=== PATIENT | male | born 1960 | race Two or more races ===

== ENCOUNTER 2018-10-08 04:38 | Inpatient (IN) | payer OTHER ==
[~2018-10-08] VITALS: Ht 188 cm; Wt 83.9 kg
--- NOTE | 2018-10-08 04:45 | NUR ---
BIBRA. C/O "FEELING WEAK AND DIZZY X2 HRS." -NEURO DEFICITS. AOX4. AMBULATORY W,ASSISTANCE.
[2018-10-08] MEDS ORDERED: ONDANSETRON HCL/PF 4 MG/2 ML VIAL IVP ONE (05:00)
[2018-10-08] MEDS ORDERED: IV NS 0.9% 500 ML BAG IV ONE ×2 (05:00→18:00)
[2018-10-08] MEDS ORDERED: MECLIZINE HCL 12.5 MG TABLET PO ONE (05:00)
[2018-10-08] MEDS ORDERED: ONDANSETRON HCL/PF 4 MG/2 ML VIAL ONE (05:01)
[2018-10-08] MEDS ORDERED: MECLIZINE HCL 25 MG TABLET ONE (05:01)
[2018-10-08 05:09] LABS: BASOPHILS # (AUTO) 0.1 /CMM (0.0-0.2); BASOPHILS % (AUTO) 1.1 % (0.0-2.0); HEMATOCRIT 43 % (39-51); HEMOGLOBIN 14.4 g/dL (13.5-17.5); LYMPHOCYTES # (AUTO) 1.7 /CMM (0.8-4.8); LYMPHOCYTES % (AUTO) 22.1 % (20.0-44.0); MEAN CORPUSCULAR HGB CONC 34 g/dl (31.0-36.0); MEAN CORPUSCULAR VOLUME 104 fL (80-96); MONOCYTES # (AUTO) 0.8 /CMM (0.1-1.30); MONOCYTES % (AUTO) 10.8 % (2.0-12.0); NEUTROPHILS # (AUTO) 4.8 /CMM (1.8-8.9); PLATELET COUNT (AUTO) 184 /CMM (150-450); RED BLOOD CELL COUNT(AUTO) 4.14 MIL/uL (4.5-6.0); WHITE BLOOD COUNT (AUTO) 7.6 K/uL (4.3-11.0)
[2018-10-08 05:26] LABS: ALBUMIN 3.6 g/dL (3.4-5.0); BILIRUBIN,DIRECT 0.8 mg/dL (0.0-0.2); BILIRUBIN,TOTAL 1.2 mg/dL (0.2-1.0); CALCIUM, SERUM 9.5 mg/dL (8.5-10.1); CREATININE 1.4 mg/dL (0.6-1.3); POTASSIUM 4.1 mmol/L (3.5-5.1); TOTAL PROTEIN, SERUM 7.8 g/dL (6.4-8.2)
--- NOTE | 2018-10-08 06:07 | NUR ---
PT ASSIGNED TO 120-2 T
[2018-10-08] MEDS ORDERED: FUROSEMIDE 20 MG/2 ML VIAL ONE (06:38)
[2018-10-08] MEDS ORDERED: FUROSEMIDE 20 MG/2 ML VIAL IV SCH (07:00)
--- NOTE | 2018-10-08 07:20 | NUR ---
REPORT RECEIVED FROM HUGO JOAQUIN FOR CHERYL
--- NOTE | 2018-10-08 07:25 | NUR ---
URINE SAMPLE SENT TO LAB
[2018-10-08] MEDS ORDERED: OMEP20CA10 PO (07:44)
[2018-10-08] MEDS ORDERED: METO-356 PO (07:44)
[2018-10-08] MEDS ORDERED: BUME1TAB4 PO (07:44)
[2018-10-08] MEDS ORDERED: POTA20TA83 PO (07:44)
[2018-10-08] MEDS ORDERED: ALLO300T2 PO (07:44)
[2018-10-08] MEDS ORDERED: ATOR40TA PO (07:44)
[2018-10-08] MEDS ORDERED: DIGO125T PO (07:44)
[2018-10-08] MEDS ORDERED: ALBU18HF2 INH (07:44)
[2018-10-08] MEDS ORDERED: RIVA10TA PO (07:44)
--- NOTE | 2018-10-08 07:50 | NUR ---
REPORT GIVEN TO MS SUKHDEV JOAQUIN OF TELE UNIT
[2018-10-08 08:00] VITALS: BP 113/62
[2018-10-08] MEDS ORDERED: ACETAMINOPHEN 325 MG TABLET PO PRN (08:00)
[2018-10-08] MEDS ORDERED: MECLIZINE HCL 12.5 MG TABLET PO PRN (08:00)
[2018-10-08] MEDS ORDERED: MAGNESIUM HYDROXIDE 30 ML UDC PO PRN (08:00)
[2018-10-08] MEDS ORDERED: MAG HYDROX/AL HYDROX/SIMETH 30 ML UDC PO PRN (08:00)
[2018-10-08] MEDS ORDERED: MORPHINE SULFATE INJ 2 MG/ML DISP.SYRIN IV PRN (08:00)
[2018-10-08] MEDS ORDERED: TEMAZEPAM 15 MG CAPSULE PO PRN (08:00)
[2018-10-08] MEDS ORDERED: ONDANSETRON HCL/PF 4 MG/2 ML VIAL IVP PRN (08:00)
--- NOTE | 2018-10-08 08:15 | NUR ---
CONVEYOR LOADERPROCESS DEVELOPER NOTES RECEIVED PT FROM ER TO ROOM 120-2 VIA GURNEY.CAN AMBULATE TO THE ROOM.ON TEL HR IS A FIB 97,CONTROLLED.ON ROOM AIR,TOLERATING WELL.NO SOB AND ACUTE DISTRESS NOTED FOR NOW.SKIN ASSESSMENT HAS DONE AND VITAL SIGNS CHECKED AND RECORDED.IV LINE IS ON LEFT AC G16,SITE IS CLEAN,DRY AND INTACT AND NO BLEEDING NOTED..BED IS IN LOW POSITION AND LOCKED.CALL LIGHT IS WITHIN REACH.WILL CONTINUE TO MONITOR THE PT CLOSELY.
[2018-10-08 08:30] VITALS: BP 113/82
[2018-10-08] MEDS: POTASSIUM CHLORIDE 20 MEQ TAB.PRT.SR PO SCH (08:58)
[2018-10-08] MEDS: ATORVASTATIN 40 MG TABLET PO SCH (08:58)
[2018-10-08] MEDS: PANTOPRAZOLE 40 MG TABLET.DR PO SCH (08:58)
[2018-10-08] MEDS: ALLOPURINOL 100 MG TABLET PO SCH (08:59)
[2018-10-08] MEDS: BUMETANIDE (1 MG) 1 MG TABLET PO SCH ×2 (08:59→17:04)
[2018-10-08] MEDS: METOPROLOL SUCCINATE 25 MG TAB.SR.24H PO SCH (08:59)
--- NOTE | 2018-10-08 12:18 | NUR ---
SW received a call from Pt's Public Information Coordinator Mau Cortes from [facility] requesting for SW's email address so he can send pt's medication list. SW gave him the email address. SAMMY did receive the medication list and informed pt's EMANI Reed who requested for SW to place list in pt's chart. SW placed the list in pt's chart as requested. SW also receive an email from Mau providing pt's new pharmacy information, which is [facility] located at [address] [place] [address]; . SAMMY called pt's RN Gretchen and gave her the aforementioned information on the Pharmacy.
[2018-10-08] MEDS: DIGOXIN 0.125 MG TABLET PO SCH (12:33)
[2018-10-08 16:00] VITALS: BP 105/72
[2018-10-08] MEDS: RIVAROXABAN 10 MG TABLET PO SCH (17:05)
--- NOTE | 2018-10-08 17:56 | NUR ---
MS RN NOTES PT STATED THAT LYNDSAY FEELING TIRED,CHECKED THE BP-109/78 AND HR -45.DIVORCE ATTORNEY JESSA CARRANZA ORDERED IV NS 500ML BOLUS ONCE NOW.NEW ORDERS NOTED AND CARRIED OUT.
--- NOTE | 2018-10-08 18:59 | NUR ---
MS RN CLOSING NOTES PT IS LYING ON BED WITH IV NS 0.9%NS BOLUS.RESPIRATION IS EVEN AND NONLABORED.ENORSED TO PYROTECHNICS PRESS TENDER RN FOR CHERYL.
[2018-10-08 20:00] VITALS: BP_SYST 101; BP_SYST 102; BP_DIAS 73; BP_DIAS 77
[2018-10-08] MEDS: HYDROCODONE/APAP 5/325MG 1 EACH TABLET PO PRN (23:09)
[2018-10-09 04:00] VITALS: BP 110/65
[2018-10-09 06:41] LABS: BASOPHILS # (AUTO) 0.1 /CMM (0.0-0.2); BASOPHILS % (AUTO) 1.5 % (0.0-2.0); EOSINOPHILS % (AUTO) 3.3 % (0.0-6.0); HEMATOCRIT 42 % (39-51); HEMOGLOBIN 13.9 g/dL (13.5-17.5); LYMPHOCYTES # (AUTO) 1.3 /CMM (0.8-4.8); LYMPHOCYTES % (AUTO) 22.2 % (20.0-44.0); MEAN CORPUSCULAR HGB CONC 33 g/dl (31.0-36.0); MEAN CORPUSCULAR VOLUME 104 fL (80-96); MONOCYTES # (AUTO) 0.7 /CMM (0.1-1.30); MONOCYTES % (AUTO) 11.8 % (2.0-12.0); NEUTROPHILS # (AUTO) 3.6 /CMM (1.8-8.9); NEUTROPHILS % (AUTO) 61.2 % (43.0-81.0); PLATELET COUNT (AUTO) 178 /CMM (150-450); RED BLOOD CELL COUNT(AUTO) 4.03 MIL/uL (4.5-6.0); WHITE BLOOD COUNT (AUTO) 5.9 K/uL (4.3-11.0)
[2018-10-09 06:50] LABS: ALBUMIN 3.1 g/dL (3.4-5.0); BILIRUBIN,TOTAL 1.4 mg/dL (0.2-1.0); CALCIUM, SERUM 8.7 mg/dL (8.5-10.1); CREATININE 1.3 mg/dL (0.6-1.3); MAGNESIUM 2.4 mg/dL (1.8-2.4); PHOSPHORUS 4.3 mg/dL (2.5-4.9); POTASSIUM 3.9 mmol/L (3.5-5.1); TOTAL PROTEIN, SERUM 6.6 g/dL (6.4-8.2)
[2018-10-09 08:00] VITALS: BP 133/76
[2018-10-09 08:05] LABS: THYROID STIMULATING HORMONE 1.674 uIU/mL (0.358-3.74)
[2018-10-09] MEDS: METOPROLOL SUCCINATE 25 MG TAB.SR.24H PO SCH (09:00)
[2018-10-09] MEDS: POTASSIUM CHLORIDE 20 MEQ TAB.PRT.SR PO SCH (09:00)
[2018-10-09] MEDS: ALLOPURINOL 100 MG TABLET PO SCH (09:01)
[2018-10-09] MEDS: BUMETANIDE (1 MG) 1 MG TABLET PO SCH ×2 (09:01→17:36)
[2018-10-09] MEDS: ATORVASTATIN 40 MG TABLET PO SCH (09:01)
[2018-10-09] MEDS: PANTOPRAZOLE 40 MG TABLET.DR PO SCH (09:01)
[2018-10-09] MEDS: CARVEDILOL 6.25 MG TABLET PO SCH ×2 (10:22→20:55)
[2018-10-09] MEDS: LISINOPRIL (10MG) 10 MG TABLET PO SCH (10:22)
[2018-10-09] MEDS: DIGOXIN 0.125 MG TABLET PO SCH (14:08)
[2018-10-09 16:00] VITALS: BP 128/80
[2018-10-09] MEDS: RIVAROXABAN 10 MG TABLET PO SCH (17:36)
[2018-10-09 20:00] VITALS: BP 94/60
[2018-10-10 04:00] VITALS: BP 85/65
[2018-10-10] MEDS: HYDROCODONE/APAP 5/325MG 1 EACH TABLET PO PRN (04:00)
[2018-10-10 05:00] VITALS: BP 94/66
[2018-10-10 07:38] LABS: BASOPHILS # (AUTO) 0.1 /CMM (0.0-0.2); BASOPHILS % (AUTO) 1.2 % (0.0-2.0); EOSINOPHILS % (AUTO) 2.6 % (0.0-6.0); HEMATOCRIT 41 % (39-51); HEMOGLOBIN 13.6 g/dL (13.5-17.5); LYMPHOCYTES % (AUTO) 16.1 % (20.0-44.0); MEAN CORPUSCULAR HGB CONC 34 g/dl (31.0-36.0); MEAN CORPUSCULAR VOLUME 104 fL (80-96); MONOCYTES # (AUTO) 0.7 /CMM (0.1-1.30); MONOCYTES % (AUTO) 11.4 % (2.0-12.0); NEUTROPHILS # (AUTO) 4.4 /CMM (1.8-8.9); NEUTROPHILS % (AUTO) 68.7 % (43.0-81.0); PLATELET COUNT (AUTO) 185 /CMM (150-450); WHITE BLOOD COUNT (AUTO) 6.5 K/uL (4.3-11.0)
[2018-10-10 07:43] LABS: CALCIUM, SERUM 8.8 mg/dL (8.5-10.1); CREATININE 1.5 mg/dL (0.6-1.3); POTASSIUM 4.1 mmol/L (3.5-5.1)
[2018-10-10 08:00] VITALS: BP 84/63
[2018-10-10] MEDS: PANTOPRAZOLE 40 MG TABLET.DR PO SCH (08:13)
[2018-10-10] MEDS: ALLOPURINOL 100 MG TABLET PO SCH (08:13)
[2018-10-10] MEDS: ATORVASTATIN 40 MG TABLET PO SCH (08:14)
[2018-10-10] MEDS: POTASSIUM CHLORIDE 20 MEQ TAB.PRT.SR PO SCH (08:14)
[2018-10-10] MEDS: CARVEDILOL 6.25 MG TABLET PO SCH (08:19)
[2018-10-10] MEDS: BUMETANIDE (1 MG) 1 MG TABLET PO SCH ×2 (08:19→17:00)
[2018-10-10] MEDS: LISINOPRIL (10MG) 10 MG TABLET PO SCH (08:22)
[2018-10-10 12:00] VITALS: BP 84/63
[2018-10-10] MEDS: DIGOXIN 0.125 MG TABLET PO SCH (13:48)
[2018-10-10] MEDS ORDERED: CARV6.252 PO (14:12)
[2018-10-10] MEDS ORDERED: LISI10TA5 PO (14:12)
[2018-10-10] MEDS ORDERED: PANT40TA2 PO (14:12)
[2018-10-10 16:00] VITALS: BP 113/65
[2018-10-10] MEDS: RIVAROXABAN 10 MG TABLET PO SCH (18:04)
--- NOTE | 2018-10-10 18:27 | NUR ---
INTERPRETIVE NATURALIST NOTE PATIENT STABLE FOR DISCHARGE PER MD ORDER. REFUSED VACCINATIONS, IN GOOD SPIRITS AND VITALS WNL. MEDICATION PROFILE AND INFORMATION REGARDING VISIT GIVEN TO ERIKA. IV REMOVED, BELONGINGS GIVEN TO PATIENT AND LIST SIGNED. PATIENT INSTRUCTED ON NEED TO FOLLOW UP YUSRA WITH PRIMARY CARE AND CARDIOLOGY. PATIENT VERBALIZED UNDERSTANDING OF INSTRUCTIONS. PATIENT WALKED OUT TO PARKING LOT AND GIVEN BUS TOKEN TO GET HOME DOWN THE ST ON [place].
== END 2018-10-10 18:00 | disposition home or self-care (01) | DRG 194 ==
LOC: ER 04:41 → TELE1 06:08 → MEDSG1 11:57
PROVIDERS: ADMIT Nurse Practitioner Acute Care; ATTEND Nurse Practitioner Acute Care
DX: I13.0 Hypertensive heart and chronic kidney disease with heart failure and stage 1 through stage 4 chronic kidney disease, or unspecified chronic kidney disease (principal); N17.0 Acute kidney failure with tubular necrosis; D68.59 Other primary thrombophilia; K21.9 Gastro-esophageal reflux disease without esophagitis; I48.91 Unspecified atrial fibrillation; I50.33 Acute on chronic diastolic (congestive) heart failure; E78.5 Hyperlipidemia, unspecified; Z59.0 Homelessness; N18.9 Chronic kidney disease, unspecified; I73.9 Peripheral vascular disease, unspecified; M10.9 Gout, unspecified; Z79.01 Long term (current) use of anticoagulants; F10.20 Alcohol dependence, uncomplicated; Y90.9 Presence of alcohol in blood, level not specified; R60.0 Localized edema
CPT/HCPCS: 36415; 70450-TC; 71045-TC; 76770-TC; 80048-TC; 80053-TC; 80061-TC; 80076-TC; 80162-TC; 83735-TC; 83880; 84100-TC; 84443-TC; 84484-TC; 85025-TC; 85730-TC; 87081-TC; 93307-TC; 93970-TC; G0378; J1940; J2405; J7040; J8597

== ENCOUNTER 2019-07-03 22:32 | Inpatient (IN) | payer OTHER ==
[~2019-07-03] VITALS: Ht 188 cm; Wt 82.6 kg
[~2019-07-03 22:32] MED LIST: ALBU18HF2 INH; ALLO300T2 PO; ATOR40TA PO; BUME1TAB8 PO; CARV6.252 PO; DIGO125T PO; LISI10TA5 PO; PANT40TA2 PO; POTA20TA83 PO; RIVA10TA PO
--- NOTE | 2019-07-03 22:43 | NUR ---
PT CAME TO ER BED 10 VIA RA C/O SHORTNESS OF BREATH. PT STATES "I CAN'T DO IT, SOMEBODY HELP, I CAN'T BREATHE" AND HAD A PANIC ATTACK AND WAS GRABBING EMS. 2L N/C ADMINISTERED. SATTING AT 99%. AAOX4. CONNECTED TO TEAM COORDINATOR.
[2019-07-03] MEDS ORDERED: FUROSEMIDE 40 MG/4 ML VIAL ONE (22:47)
--- NOTE | 2019-07-03 22:48 | NUR ---
XRAY AT BEDSIDE
--- NOTE | 2019-07-03 22:57 | NUR ---
BP AT 104/67 VIOLETTA HELD. NOTIFIED.
[2019-07-03] MEDS ORDERED: FUROSEMIDE 40 MG/4 ML VIAL IV ONE (23:00)
[2019-07-03 23:15] LABS: BASOPHILS # (AUTO) 0.1 /CMM (0.0-0.2); HEMOGLOBIN 14.7 g/dL (13.5-17.5); WHITE BLOOD COUNT (AUTO) 6.7 K/uL (4.3-11.0)
[2019-07-03 23:22] LABS: BASOPHILS % (AUTO) 1.2 % (0.0-2.0); EOSINOPHILS % (AUTO) 2.7 % (0.0-6.0); HEMATOCRIT 45 % (39-51); LYMPHOCYTES # (AUTO) 2.2 /CMM (0.8-4.8); LYMPHOCYTES % (AUTO) 32.1 % (20.0-44.0); MEAN CORPUSCULAR HGB CONC 32 g/dl (31.0-36.0); MEAN CORPUSCULAR VOLUME 106 fL (80-96); MONOCYTES # (AUTO) 1.1 /CMM (0.1-1.30); NEUTROPHILS # (AUTO) 3.2 /CMM (1.8-8.9); PLATELET COUNT (AUTO) 176 /CMM (150-450); RED BLOOD CELL COUNT(AUTO) 4.29 MIL/uL (4.5-6.0)
[2019-07-03 23:26] LABS: CALCIUM, SERUM 9.5 mg/dL (8.5-10.1); CREATININE 1.6 mg/dL (0.6-1.3); POTASSIUM 4.6 mmol/L (3.5-5.1)
[2019-07-03 23:49] LABS: ALBUMIN 3.7 g/dL (3.4-5.0); BILIRUBIN,TOTAL 1.6 mg/dL (0.2-1.0); TOTAL PROTEIN, SERUM 7.5 g/dL (6.4-8.2)
[2019-07-04 00:45] LABS: BAND % (MANUAL) 4 % (0.0-5.0); LYMPHOCYTES % (MANUAL) 35 % (16-48); MONOCYTES % (MANUAL) 22 % (0-11.0); NEUTROPHILS % (MANUAL) 39 (42-76)
--- NOTE | 2019-07-04 02:04 | NUR ---
CALLED NURSING CAR TRACER FOR TELE BED.
--- NOTE | 2019-07-04 02:15 | NUR ---
PANEL PAGED PER ER MD ORDER.
[2019-07-04] MEDS ORDERED: FUROSEMIDE 40 MG/4 ML VIAL ONE (02:20)
--- NOTE | 2019-07-04 02:24 | NUR ---
patient is complaining of leg pain/ tightness. patient is asking for lasix. MD is notified. MD verbal order to give IVP lasix 40mg. BP 103/52. is aware.
--- NOTE | 2019-07-04 02:24 | NUR ---
Note marquita in EDM - 07/04/19 at 0316 by ROBIN patient is complaining of leg pain/ tightness. patient is asking for lasix. is notified. verbal order to give IVP lasix 4mg. BP 103/52. is aware.
--- NOTE | 2019-07-04 02:36 | NUR ---
TELE 111-1
[2019-07-04] MEDS ORDERED: HYDROCODONE/APAP 5/325MG 1 EACH TABLET PO PRN (03:00)
[2019-07-04] MEDS ORDERED: ACETAMINOPHEN 325 MG TABLET PO PRN (03:00)
[2019-07-04] MEDS ORDERED: ONDANSETRON HCL/PF 4 MG/2 ML VIAL IVP PRN (03:00)
[2019-07-04] MEDS ORDERED: MAGNESIUM HYDROXIDE 30 ML UDC PO PRN (03:00)
[2019-07-04] MEDS ORDERED: FUROSEMIDE 40 MG/4 ML VIAL IV ONE (03:00)
[2019-07-04] MEDS ORDERED: ALBUTEROL FS 2.5 MG/0.5 ML VIAL.NEB NEB PRN (03:00)
[2019-07-04] MEDS ORDERED: MAG HYDROX/AL HYDROX/SIMETH 30 ML UDC PO PRN (03:00)
[2019-07-04] MEDS ORDERED: Z GUARD REMEDY 2 OZ OINT TP PRN (03:00)
--- NOTE | 2019-07-04 03:34 | NUR ---
REPORT GIVEN TO CESAR FOR CHERYL
[2019-07-04 04:00] VITALS: BP 105/70
--- NOTE | 2019-07-04 07:37 | NUR ---
STAGE BUILDER CLOSING NOTE PATIENT IN BED WITH NO SIGNS OF ANY DISTRESS. PATIENT ON THE MONITOR SHOWING A-FIB RECENT HX. PATIENT HAS A LAC #18G PATENT AND FLUSHING. PATIENT CURRENTLY IS ON 2L OF 02 TOLERATING AT 97% SATURATION. ALL SAFETY PRECAUTIONS APPLIED. ENDORSED PATIENT TO MORNING SHIFT NURSE FOR CHERYL.
[2019-07-04 07:42] LABS: BASOPHILS # (AUTO) 0.1 /CMM (0.0-0.2); BASOPHILS % (AUTO) 1.2 % (0.0-2.0); EOSINOPHILS % (AUTO) 2.4 % (0.0-6.0); HEMATOCRIT 40 % (39-51); HEMOGLOBIN 13.5 g/dL (13.5-17.5); LYMPHOCYTES # (AUTO) 1.6 /CMM (0.8-4.8); LYMPHOCYTES % (AUTO) 26.6 % (20.0-44.0); MEAN CORPUSCULAR HGB CONC 33 g/dl (31.0-36.0); MEAN CORPUSCULAR VOLUME 103 fL (80-96); MONOCYTES # (AUTO) 0.8 /CMM (0.1-1.30); MONOCYTES % (AUTO) 13.3 % (2.0-12.0); NEUTROPHILS # (AUTO) 3.3 /CMM (1.8-8.9); NEUTROPHILS % (AUTO) 56.5 % (43.0-81.0); PLATELET COUNT (AUTO) 166 /CMM (150-450); WHITE BLOOD COUNT (AUTO) 5.8 K/uL (4.3-11.0)
[2019-07-04 07:59] LABS: CALCIUM, SERUM 9.3 mg/dL (8.5-10.1); CREATININE 1.5 mg/dL (0.6-1.3); MAGNESIUM 2.2 mg/dL (1.8-2.4); PHOSPHORUS 4.5 mg/dL (2.5-4.9); POTASSIUM 4.7 mmol/L (3.5-5.1); THYROID STIMULATING HORMONE 1.605 uIU/mL (0.358-3.74)
[2019-07-04 08:00] VITALS: BP 113/79
[2019-07-04] MEDS: RIVAROXABAN 10 MG TABLET PO SCH (10:22)
[2019-07-04] MEDS: CARVEDILOL 6.25 MG TABLET PO SCH ×2 (10:23→21:21)
[2019-07-04] MEDS: PANTOPRAZOLE 40 MG TABLET.DR PO SCH (10:23)
[2019-07-04] MEDS: ALLOPURINOL 100 MG TABLET PO SCH (10:23)
[2019-07-04] MEDS: LISINOPRIL (10MG) 10 MG TABLET PO SCH (10:24)
[2019-07-04] MEDS: FUROSEMIDE 40 MG/4 ML VIAL IV SCH ×3 (10:24→17:21)
[2019-07-04 12:00] VITALS: BP 124/68
[2019-07-04] MEDS: DIGOXIN 0.125 MG TABLET PO SCH (13:42)
[2019-07-04 16:00] VITALS: BP 128/72
--- NOTE | 2019-07-04 19:25 | NUR ---
RN OPEN NOTES RECEIVED PATIENT AWAKE IN BED WITH FAMILY AT BEDSIDE. A/OX4. NO SIGNS OF DISTRESS OR DISCOMFORT. BREATHING EVEN AND UNLABORED. ON 2LPM O2 VIA NC. ON TELE MONITOR WITH AFIB 73 NOTED. IV ACCESS IN LAC, PATENT AND INTACT, NO SIGNS OF REDNESS OR INFILTRATION. BED IN LOW LOCKED POSITION WITH SIDE RAILS X2. CALL LIGHT WITHIN REACH. WILL CONTINUE TO MONITOR.
[2019-07-04 20:00] VITALS: BP 109/81
--- NOTE | 2019-07-04 23:14 | NUR ---
Met with patient, he is alert and pleasant. States he lives alone in the fourth floor [facility] apartment with elevator access. He is ambulatory and independent with adl's. Has no DME or homehealth reported. His pcp is at [facility]. He might need assistance with transportation when discharge. Addendum: 07/04/19 at 2314 by DANICA KHAN RN Amended: Links added.
[2019-07-05] VITALS (8 sets, daily range): BP systolic 94–99; BP diastolic 46–71
--- NOTE | 2019-07-05 06:31 | NUR ---
RN CLOSING NOTES PATIENT AWAKE SITTING IN BED. A/OX4. NO SIGNS OF DISTRESS OR DISCOMFORT. BREATHING EVEN AND UNLABORED. ON 2LPM O2 VIA NC. ON TELE MONITOR WITH AFIB 75 NOTED. IV ACCESS IN LAC, PATENT AND INTACT, NO SIGNS OF REDNESS OR INFILTRATION. ALL NEEDS MET. NO SIGNIFICANT CHANGES THROUGH THE NIGHT. BED IN LOW LOCKED POSITION WITH SIDE RAILS X2. CALL LIGHT WITHIN REACH. WILL ENDORSE TO AM SHIFT FOR CHERYL.
[2019-07-05] MEDS: LISINOPRIL (10MG) 10 MG TABLET PO SCH (08:19)
[2019-07-05] MEDS: FUROSEMIDE 40 MG/4 ML VIAL IV SCH ×3 (08:19→17:01)
[2019-07-05] MEDS: PANTOPRAZOLE 40 MG TABLET.DR PO SCH (08:19)
[2019-07-05] MEDS: ALLOPURINOL 100 MG TABLET PO SCH (08:19)
[2019-07-05] MEDS: RIVAROXABAN 10 MG TABLET PO SCH (08:28)
[2019-07-05] MEDS: CARVEDILOL 6.25 MG TABLET PO SCH ×2 (09:00→21:00)
[2019-07-05] MEDS: DIGOXIN 0.125 MG TABLET PO SCH (12:43)
--- NOTE | 2019-07-05 18:27 | NUR ---
Patient alert and oriented x4 , stable on room air. All needs attended. Patient kept comfortable. Strict I/O. Patient ambulatory, gate stable . IV line remain intact and patent. Safety precautions in place and call light within reach.
--- NOTE | 2019-07-05 21:33 | NUR ---
COREG DOSE HELD THE PATIENT BLOOD PRESSURE IS LOW 97/56/ SILK SCREEN PROCESSOR HARPAL IS PAGED TO INFORM
[2019-07-06] VITALS: BP 96/71
[2019-07-06 04:00] VITALS: BP 92/65
[2019-07-06] MEDS: PANTOPRAZOLE 40 MG TABLET.DR PO SCH (07:43)
[2019-07-06 08:00] VITALS: BP 94/74
[2019-07-06 08:12] LABS: BASOPHILS # (AUTO) 0.1 /CMM (0.0-0.2); BASOPHILS % (AUTO) 0.9 % (0.0-2.0); EOSINOPHILS % (AUTO) 1.5 % (0.0-6.0); HEMATOCRIT 39 % (39-51); HEMOGLOBIN 13.2 g/dL (13.5-17.5); LYMPHOCYTES # (AUTO) 1.2 /CMM (0.8-4.8); LYMPHOCYTES % (AUTO) 16.7 % (20.0-44.0); MEAN CORPUSCULAR HGB CONC 34 g/dl (31.0-36.0); MEAN CORPUSCULAR VOLUME 102 fL (80-96); MONOCYTES # (AUTO) 1.2 /CMM (0.1-1.30); MONOCYTES % (AUTO) 17.2 % (2.0-12.0); NEUTROPHILS # (AUTO) 4.5 /CMM (1.8-8.9); NEUTROPHILS % (AUTO) 63.7 % (43.0-81.0); PLATELET COUNT (AUTO) 195 /CMM (150-450); RED BLOOD CELL COUNT(AUTO) 3.83 MIL/uL (4.5-6.0); WHITE BLOOD COUNT (AUTO) 7.1 K/uL (4.3-11.0)
[2019-07-06] MEDS: RIVAROXABAN 10 MG TABLET PO SCH (08:57)
[2019-07-06] MEDS: ALLOPURINOL 100 MG TABLET PO SCH (08:58)
[2019-07-06] MEDS: CARVEDILOL 6.25 MG TABLET PO SCH (09:00)
[2019-07-06] MEDS: LISINOPRIL (10MG) 10 MG TABLET PO SCH (09:00)
[2019-07-06] MEDS: FUROSEMIDE 40 MG/4 ML VIAL IV SCH (09:00)
[2019-07-06 09:04] LABS: ALBUMIN 2.8 g/dL (3.4-5.0); BILIRUBIN,TOTAL 1.5 mg/dL (0.2-1.0); CALCIUM, SERUM 8.3 mg/dL (8.5-10.1); CREATININE 1.3 mg/dL (0.6-1.3); PHOSPHORUS 2.8 mg/dL (2.5-4.9); POTASSIUM 3.6 mmol/L (3.5-5.1); TOTAL PROTEIN, SERUM 5.9 g/dL (6.4-8.2)
--- NOTE | 2019-07-06 09:35 | NUR ---
TELE/RN NOTES MEDICATION COREG, PRINIVIL, LASIX WAS NOT GIVEN DUE TO LOW BP. PATIENT CONTINUES TO REMAIN IN STABLE CONDITION. WILL CONTINUE TO MONITOR CLOSELY.
[2019-07-06 10:27] LABS: EOSINOPHILS % (MANUAL) 1 % (0-4); LYMPHOCYTES % (MANUAL) 19 % (16-48); MONOCYTES % (MANUAL) 16 % (0-11.0); NEUTROPHILS % (MANUAL) 64 (42-76)
[2019-07-06 12:00] VITALS: BP 107/70
--- NOTE | 2019-07-06 12:06 | NUR ---
TELE/RN NOTES RECEIVED A PHONE CALL FROM THE PERSON DELIVERING THE LIFEVEST. ACCORDING TO HIM HE WILL BE IN AROUND THE AFTERNOON. PATIENT CONTINUES TO REMAIN IN STABLE CONDITION. WILL CONTINUE TO MONITOR CLOSELY.
[2019-07-06] MEDS: DIGOXIN 0.125 MG TABLET PO SCH (13:03)
[2019-07-06 16:00] VITALS: BP 108/76
--- NOTE | 2019-07-06 17:50 | NUR ---
TELE/SIZING END BANDER NOTES RECEIVED ORDERS FOR DISCHARGE. ALL DISCHARGE PAPERS WAS SIGNED AND GIVEN TO THE PATIENT. PATIENT WAS ABLE TO UNDERSTAND DISCHARGE TEACHINGS. FINAL SKIN ASSESSMENTS WAS DONE. PHOTO WAS TAKEN AND WAS PLACED IN THE CHART. ALL BELONGINGS WAS GIVEN WELL. PATIENT REFUSED TO TAKE THE LIFEVEST WITH HIM. PER PATIENT, HE WILL JUST COME BACK FOR IT ON MONDAY BECAUSE HE IS SCARED THAT IF HE TAKES IT NOW AND CARRY IT AROUND IT MIGHT GET STOLEN. LIFEVEST WAS LEFT IN THE STATION WITH PATIENTS LABEL. CN AND MONITOR AWARE THAT IT IS IN THE STATION. PATIENT LEFT THE HOSPITAL IN STABLE CONDITION. TAP CARD WAS GIVEN WELL TO THE PATIENT.
[2019-07-07] MEDS ORDERED: POTASSIUM CHLORIDE 20 MEQ TAB.PRT.SR PO SCH (09:00)
[2019-07-07] MEDS ORDERED: FUROSEMIDE 80 MG TABLET PO SCH (09:00)
== END 2019-07-06 17:50 | disposition home or self-care (01) | DRG 194 ==
LOC: ER 22:32 → TELE1 07-04 02:46
PROVIDERS: ADMIT Internal Medicine; ATTEND Internal Medicine
DX: I13.0 Hypertensive heart and chronic kidney disease with heart failure and stage 1 through stage 4 chronic kidney disease, or unspecified chronic kidney disease (principal); J96.01 Acute respiratory failure with hypoxia; N17.0 Acute kidney failure with tubular necrosis; I27.20 Pulmonary hypertension, unspecified; D68.59 Other primary thrombophilia; Z79.01 Long term (current) use of anticoagulants; I48.91 Unspecified atrial fibrillation; N18.9 Chronic kidney disease, unspecified; I50.23 Acute on chronic systolic (congestive) heart failure; E78.5 Hyperlipidemia, unspecified; K74.60 Unspecified cirrhosis of liver; I42.9 Cardiomyopathy, unspecified; I73.9 Peripheral vascular disease, unspecified; R74.0 Nonspecific elevation of levels of transaminase and lactic acid dehydrogenase [LDH]; M10.9 Gout, unspecified
CPT/HCPCS: 36415; 71045-TC; 76700-TC; 80048-TC; 80053-TC; 80061-TC; 80076-TC; 80162-TC; 83735-TC; 83880; 84100-TC; 84443-TC; 84484-TC; 85025-TC; 85730-TC; 87081-TC; 93307-TC; G0378; J1940

== ENCOUNTER 2019-07-21 06:29 | Emergency (ER) | payer OTHER ==
[~2019-07-21] VITALS: Ht 188 cm; Wt 85.7 kg
[2019-07-21 06:42] VITALS: BP 106/64
--- NOTE | 2019-07-21 07:01 | NUR ---
PT BIBS. COUGHING. MOUTH SORE X 3D, MOUTH SOIAYS. GETTING WORST. PT AAOX4, NO ACUTE DISTRESS NOTED. PT CONNECTED TO THE MONITOR AND POX.
== END 2019-07-21 07:48 | disposition home or self-care (01) ==
LOC: ER 06:30
DX: K12.0 Recurrent oral aphthae (principal); I10 Essential (primary) hypertension; I48.91 Unspecified atrial fibrillation; Z60.2 Problems related to living alone; Z79.899 Other long term (current) drug therapy

== ENCOUNTER 2020-01-02 22:02 | Inpatient (IN) | payer OTHER ==
[~2020-01-02] VITALS: Ht 188 cm; Wt 85.7 kg
[2020-01-02 22:29] LABS: BASOPHILS # (AUTO) 0.2 /CMM (0.0-0.2); EOSINOPHILS % (AUTO) 1.6 % (0.0-6.0); HEMATOCRIT 40 % (39-51); HEMOGLOBIN 13.4 g/dL (13.5-17.5); LYMPHOCYTES # (AUTO) 1.4 /CMM (0.8-4.8); LYMPHOCYTES % (AUTO) 20.8 % (20.0-44.0); MEAN CORPUSCULAR HGB CONC 33 g/dl (31.0-36.0); MEAN CORPUSCULAR VOLUME 106 fL (80-96); MONOCYTES # (AUTO) 0.9 /CMM (0.1-1.30); MONOCYTES % (AUTO) 13.9 % (2.0-12.0); NEUTROPHILS # (AUTO) 4.1 /CMM (1.8-8.9); NEUTROPHILS % (AUTO) 60.7 % (43.0-81.0); PLATELET COUNT (AUTO) 184 /CMM (150-450); WHITE BLOOD COUNT (AUTO) 6.7 K/uL (4.3-11.0)
--- NOTE | 2020-01-02 22:41 | NUR ---
BIBS TO ER BED 7. AAOX4. NOT IN RESP DISTRESS. AMBULATORY. ANXIOUS. PT CAME IN FOR FEELING OF SOB. PER PT HE THINK ITS HIS CHF ACTING UP. PT IS NOT NOTED W/ ELEVATED BP. LUNG SOUNDS ARE CLEAR. PT ALL OF A SUDDEN GOT VERU ANXIOUS WHEN THE SIDE RAIL WAS RAISED UP. ONE RAIL IS LEFT DOWN TO PREVENT PATIENT FROM BEING CLOSE IN WHICH AGGREVATES HIS ANXIETY. MD WAS AT THE BEDSIDE FOR EVAL. ORDER RECEIVED NOTED AND CARIED OUT.
[2020-01-02 23:01] LABS: CALCIUM, SERUM 8.9 mg/dL (8.5-10.1); CREATININE 2.1 mg/dL (0.6-1.3)
[2020-01-02 23:13] LABS: ALBUMIN 3.6 g/dL (3.4-5.0); BILIRUBIN,DIRECT 1.1 mg/dL (0.0-0.2); BILIRUBIN,TOTAL 1.8 mg/dL (0.2-1.0); TOTAL PROTEIN, SERUM 7.2 g/dL (6.4-8.2)
[2020-01-02 23:16] LABS: EOSINOPHILS % (MANUAL) 1 % (0-4); LYMPHOCYTES % (MANUAL) 17 % (16-48); MONOCYTES % (MANUAL) 8 % (0-11.0); NEUTROPHILS % (MANUAL) 74 (42-76)
--- NOTE | 2020-01-02 23:20 | NUR ---
COVID SWAB SENT TO LAB
[2020-01-02] MEDS ORDERED: FUROSEMIDE 40 MG/4 ML VIAL IV ONE (23:30)
--- NOTE | 2020-01-02 23:39 | NUR ---
REC'D NEG COVID RESULTS. AND WES SUP AWARE
--- NOTE | 2020-01-02 23:59 | NUR ---
ROOM ASSIGNMENT; 316-2 TELE
[2020-01-03] MEDS ORDERED: FUROSEMIDE 40 MG/4 ML VIAL ONE
--- NOTE | 2020-01-03 00:41 | NUR ---
REPORT GIVEN TO EMANI AMBRIZ FOR CHERYL PT WILL BE TRANSPORTED TO 3RD FLOOR
--- NOTE | 2020-01-03 00:59 | NUR ---
pt transported to 3rd floor
--- NOTE | 2020-01-03 01:20 | NUR ---
RN NOTES ADMITTED PATIENT TRANSPORTED VIA GURNEY FROM ER. ALERT ORIENTED X4. NO SIGNS OF ACUTE CARDIAC AND OR RESPIRATORY DISTRESS NOTED. INITIAL ASSESSMENT AND ADMISSION PROCESS INITIATED. SAFETY MEASURES INPLACE, ASPIRATION PRECAUTION EMPHASIZED, CALL LIGHT WITHIN EASY REACH. BED IN LOW LOCKED POSITION. KEEP CLEAN WARM DRY ND COMFORTABLE. IV ACCESS INTACT AND PATENT. ALL NEEDS ANTICIPATED. WILL CONTINUE TO MONITOR ACCORDINGLY.
[2020-01-03] MEDS ORDERED: Z GUARD REMEDY 2 OZ OINT TP PRN (02:00)
[2020-01-03] MEDS ORDERED: ONDANSETRON HCL/PF 4 MG/2 ML VIAL IVP PRN (02:00)
[2020-01-03] MEDS ORDERED: BUMETANIDE INJ 6 MG in IV NS 0.9% 36 ML IV ONE (02:00)
[2020-01-03] MEDS ORDERED: ALBUTEROL SULFATE INH 18 GM HFA.AER.AD IH PRN ×3 (02:00→04:00)
[2020-01-03] MEDS ORDERED: ACETAMINOPHEN 325 MG TABLET PO PRN (02:00)
[2020-01-03] MEDS ORDERED: ZOLPIDEM TARTRATE 5 MG TABLET PO PRN (02:00)
[2020-01-03] MEDS ORDERED: BUMETANIDE INJ 0.25 MG/ML VIAL ONE (02:39)
[2020-01-03 03:17] VITALS: BP 104/79
[2020-01-03] MEDS ORDERED: POTASSIUM CHLORIDE 20 MEQ TAB.PRT.SR PO ONE (04:00)
[2020-01-03 05:11] LABS: CALCIUM, SERUM 8.8 mg/dL (8.5-10.1); CREATININE 1.9 mg/dL (0.6-1.3); MAGNESIUM 2.7 mg/dL (1.8-2.4); PHOSPHORUS 4.6 mg/dL (2.5-4.9); POTASSIUM 3.8 mmol/L (3.5-5.1)
--- NOTE | 2020-01-03 06:38 | NUR ---
RN NOTES ALL NEEDS ATTENDED AND MET ABLE TO REST AND SLEPT AT INTERVALS, DENIES ANY PAIN AT THIS TIME, EASILY AROUSABLE. KEEP CLEAN WARM DRY AND COMFORTABLE. CALL LIGHT WITH IN EASY REACH, SAFETY MEASURES IN PLACE. WILL ENDORSE TO AM NURSE FOR CONTINUITY OF CARE.
--- NOTE | 2020-01-03 07:10 | NUR ---
MS RN NOTE PATIENT SEEN BY DR. TAYLOR.
--- NOTE | 2020-01-03 07:15 | NUR ---
MS RN NOTES RECEIVED PATIENT IN BED ALERT AND AWAKE ORIENTED X4. C/O PAIN. OFFERED PAIN MEDICATION BUT PATIENT REFUSED AT THIS TIME. NO SOB OBSERVED. NOTED ABD DISTENTION WITH RIGHT ARM SWELLING. PHONE JUAREZ REMOVED FROM RIGHT ARM. LEFT HAND #22 SL INTACT AND PATENT. ABLE TO VERBALIZE NEEDS. CALL LIGHT WITHIN REACH. BED IN LOWEST POSITION, LOCKED.
[2020-01-03] MEDS: PANTOPRAZOLE 40 MG TABLET.DR PO SCH (07:30)
[2020-01-03] MEDS: CARVEDILOL 6.25 MG TABLET PO SCH ×2 (09:00→22:16)
[2020-01-03] MEDS: LISINOPRIL (10MG) 10 MG TABLET PO SCH (09:00)
[2020-01-03] MEDS: POTASSIUM CHLORIDE 20 MEQ TAB.PRT.SR PO SCH (09:18)
[2020-01-03] MEDS: DIGOXIN 0.125 MG TABLET PO SCH (09:18)
[2020-01-03] MEDS: BUMETANIDE (1 MG) 1 MG TABLET PO SCH ×2 (09:18→16:38)
[2020-01-03] MEDS: ALLOPURINOL 100 MG TABLET PO SCH (09:18)
--- NOTE | 2020-01-03 09:20 | NUR ---
MS RN NOTES HELD LISINOPRIL 10 MG AND CARVEDILOL 6.25MG BP 106/71 HR:88
[2020-01-03 09:28] VITALS: BP 106/71
[2020-01-03] MEDS ORDERED: ALBUTEROL FS 2.5 MG/3 ML VIAL.NEB NEB PRN (09:30)
--- NOTE | 2020-01-03 09:46 | NUR ---
MS/RN Life vest follow up Per MD request, follow up regarding whereabouts of life vest. Patient provided with life vest vest on previous hospitalization in June of this year but upon discharge refused to take vest with him. Stating that he did no want to be carrying it around as afraid that he would lose it, stated that he would return to supervisor opening and picking in a couple of days. Nursing notes state that life vest was left in bag with patient's name at nursing station. Patient was on TD. Charge nurse Susan made aware.
--- NOTE | 2020-01-03 11:58 | NUR ---
WOUND CARE CONSULT: RECEIVED REQUEST FROM RN TO SEE PT FOR HIS LOWER EXTREMITIES. LEGS NOTED TO HAVE DUSKY COLOR WITH VARICOSITIES NOTED. PT IS INDEPENDENT WITH BED MOBILITY AND CONTINENT. WILL SEE PRN.
--- NOTE | 2020-01-03 16:06 | NUR ---
MS RN NOTES PATIENT S/P PARACENTESIS OUTPUT 5300ML JOSE WELL WITHOUT S/S OF COMPLICATIONS.
[2020-01-03 16:13] VITALS: BP 107/79
[2020-01-03] MEDS: RIVAROXABAN 10 MG TABLET PO SCH (16:39)
--- NOTE | 2020-01-03 19:09 | NUR ---
MS RN NOTES PATIENT RESTING COMFORTABLY IN BED. NO S/S OF RESPIRATORY DISTRESS. PER PATIENT, CAN BREATH MUCH BETTER AND PAIN IMPROVED WHEN FLUIDS WAS REMOVED. HOB ELEVATED. AMBULATORY WITH STEADY GAIT. LEFT HAND #22 SL INTACT AND PATENT. ABLE TO VERBALIZE NEEDS. CALL LIGHT WITHIN REACH. BED IN LOWEST POSITION, LOCKED. IN NO APPARENT DISTRESS.
--- NOTE | 2020-01-03 19:30 | NUR ---
MS RN RECEIVE PT IN BED A/O X 4 P S/P PARACENTESIS AWAITING LIFE VEST. IN STABLE, NO S/S OF DISTRESS, SAFETY MEASURES AT ALL TIMES. WILL CONT TO MONITOR PT
[2020-01-03 20:00] VITALS: BP 99/68
[2020-01-03] MEDS ORDERED: ATORVASTATIN 40 MG TABLET PO SCH (22:00)
--- NOTE | 2020-01-04 05:52 | NUR ---
MS RN ASLEEP AND EASILY AWAKEN, NO SHORTNESS OF BREATH, TOLERATING ROOM AIR, HAD AM SNACKS. AM CARE RENDERED, GOOD SKIN CARE, NO C/O OF PAIN, NO S/S OF DISTRESS, ALL NEEDS ATTENDED AND ANTICIPATED, MONITORED ACCORDINGLY, KEPT CLEAN, COMFORTABLE. SAFETY MEASURES AT ALL TIMES. ENDORSE NEXT SHIFT POC.
[2020-01-04 06:24] LABS: BASOPHILS # (AUTO) 0.1 /CMM (0.0-0.2); BASOPHILS % (AUTO) 1.4 % (0.0-2.0); EOSINOPHILS % (AUTO) 1.9 % (0.0-6.0); HEMATOCRIT 38 % (39-51); HEMOGLOBIN 12.5 g/dL (13.5-17.5); LYMPHOCYTES # (AUTO) 1.2 /CMM (0.8-4.8); LYMPHOCYTES % (AUTO) 21.3 % (20.0-44.0); MEAN CORPUSCULAR HGB CONC 33 g/dl (31.0-36.0); MEAN CORPUSCULAR VOLUME 106 fL (80-96); MONOCYTES # (AUTO) 0.9 /CMM (0.1-1.30); MONOCYTES % (AUTO) 15.7 % (2.0-12.0); NEUTROPHILS # (AUTO) 3.4 /CMM (1.8-8.9); NEUTROPHILS % (AUTO) 59.7 % (43.0-81.0); PLATELET COUNT (AUTO) 171 /CMM (150-450); RED BLOOD CELL COUNT(AUTO) 3.57 MIL/uL (4.5-6.0); WHITE BLOOD COUNT (AUTO) 5.7 K/uL (4.3-11.0)
--- NOTE | 2020-01-04 07:05 | NUR ---
MS RN NOTES RECEIVED PATIENT IN BED ASLEEP, AROUSABLE TO VERBAL AND TACTILE STIMULI. NO SOB. DENIES C/O PAIN. LEFT HAND #22 SL INTACT AND PATENT. ABLE TO VERBALIZE NEEDS. CALL LIGHT WITHIN REACH. BED IN LOWEST POSITION, LOCKED.
[2020-01-04 07:10] LABS: CALCIUM, SERUM 8.4 mg/dL (8.5-10.1); CREATININE 1.8 mg/dL (0.6-1.3); MAGNESIUM 2.4 mg/dL (1.8-2.4); PHOSPHORUS 4.1 mg/dL (2.5-4.9); POTASSIUM 3.8 mmol/L (3.5-5.1); THYROID STIMULATING HORMONE 2.19 uIU/mL (0.358-3.74)
[2020-01-04 08:00] VITALS: BP 91/58
[2020-01-04] MEDS: PANTOPRAZOLE 40 MG TABLET.DR PO SCH (08:26)
[2020-01-04] MEDS: DIGOXIN 0.125 MG TABLET PO SCH (08:47)
[2020-01-04] MEDS: ALLOPURINOL 100 MG TABLET PO SCH (08:47)
[2020-01-04] MEDS: LISINOPRIL (10MG) 10 MG TABLET PO SCH (08:47)
[2020-01-04] MEDS: POTASSIUM CHLORIDE 20 MEQ TAB.PRT.SR PO SCH (08:47)
[2020-01-04] MEDS: BUMETANIDE (1 MG) 1 MG TABLET PO SCH ×2 (08:47→17:42)
[2020-01-04] MEDS: CARVEDILOL 6.25 MG TABLET PO SCH (08:47)
--- NOTE | 2020-01-04 08:48 | NUR ---
CLIENT RELATIONSHIP EXECUTIVE NOTES HELD MANDIE AND AMBER B/P 98/62 HR: 74 TAKEN MANUALLY.
[2020-01-04 10:28] LABS: BAND % (MANUAL) 1 % (0.0-5.0); EOSINOPHILS % (MANUAL) 1 % (0-4); LYMPHOCYTES % (MANUAL) 19 % (16-48); MONOCYTES % (MANUAL) 14 % (0-11.0); MYELOCYTES % 1 % (0-0); NEUTROPHILS % (MANUAL) 64 (42-76)
[2020-01-04] MEDS ORDERED: MORPHINE SULFATE INJ 2 MG/ML DISP.SYRIN IV PRN (15:00)
[2020-01-04 16:00] VITALS: BP 99/75
[2020-01-04] MEDS: RIVAROXABAN 10 MG TABLET PO SCH (17:41)
--- NOTE | 2020-01-04 19:30 | NUR ---
RN NOTES: -RECEIVED ENDORSEMENT PATIENT IS FOR DISCHARGE, OUTGOING RN ALREADY PREPARED ALL THE DISCHARGE PAPER, SHE REQUEST TO TAKE PICTURES AND LET THE PATIENT SIGNED BELONGINGS PAPER,PER ENDORSEMENT HE WILL GO HOME VIA [place], HE HAS MONEY FOR THE BUS FARE. -ORIENTED TO INCOMING STAFF AND INSTRUCT TO WAIT FOR FURTHER INSTRUCTION FOR HIS DISCHARGE, BUT FIRST WE WILL TAKE PICTURE OF HIS SKIN ISSUES.HE AGREED.
--- NOTE | 2020-01-04 19:52 | NUR ---
MS RN NOTES PATIENT RESTING COMFORTABLY IN BED.NO C/O OF SOB. DENIES ANY C/O PAIN NOR DISCOMFORT AT THIS TIME. PATIENT FOR DISCHARGE. DISCHARGE INSTRUCTIONS AND PACKET GIVEN TO PATIENT. IV ACCES REMOVED WITH CATHETER TIP INTACT. ALL BELONGINGS ACCOUNTED FOR. AMBULATORY WITH STEADY GAIT. IV ACCESS REMOVED WITH CATHETER TIP INTACT. PATIENT LEFT IN STABLE CONDITION.
[2020-01-04 20:00] VITALS: BP 98/68
--- NOTE | 2020-01-04 20:24 | NUR ---
RN NOTES: -AT 1940 PICTURES TAKEN ON THE RIGHT HAND, RIGHT HEAD, ABDOMEN AND BOTH FEET. - OUTGOING RN EXPLAINED ALL OF HIS DISCHARGE INSTRUCTION INCLUDING MEDICATION. -HE SIGNED DISCHARGE PAPERS AND BELONGINGS, COPY GIVEN TO PATIENT AND ORIGINAL PLACED IN HIS CHART. -CN NOTIFIED BEFORE PATIENT LEFT, HE WILL GO BY THE BUS, ACCOMPANIED BY EPOXY FABRICATION SUPERVISOR GOING DOWN WITH HIS BELONGINGS, HE EXPRESS HIS HEARTFELT THANKS TO THE STAFF,LEFT AT 2021 ACCOMPANIED BY EPOXY FABRICATION SUPERVISOR GOING DOWN TO EXIT. Addendum: 01/04/20 at 2040 by AMBER ALMODOVAR RN ADDED NOTES: PATIENT WAS STABLE WHEN HE LEFT, NO SOB OR ANY SIGN OF CHEST DISCOMFORT, A/OX4,CONVERSANT,LATEST V/S BP-98/68 CO-86 RR-18 T-97.8 SPO2-98%, DISCHARGE AT 2024
== END 2020-01-04 20:25 | disposition home or self-care (01) | DRG 194 ==
LOC: ER 22:02 → TELE 01-03 00:28 → MED 01-03 02:21
PROVIDERS: ADMIT Nurse Practitioner Acute Care; ATTEND Student in an Organized Health Care Education/Training Program
PROC: 0W9G3ZZ Drainage of Peritoneal Cavity, Percutaneous Approach (ICD-10-PCS; principal; 2020-01-03)
DX: I13.0 Hypertensive heart and chronic kidney disease with heart failure and stage 1 through stage 4 chronic kidney disease, or unspecified chronic kidney disease (principal); I48.91 Unspecified atrial fibrillation; D68.59 Other primary thrombophilia; N17.0 Acute kidney failure with tubular necrosis; E87.1 Hypo-osmolality and hyponatremia; I50.33 Acute on chronic diastolic (congestive) heart failure; K21.9 Gastro-esophageal reflux disease without esophagitis; I50.23 Acute on chronic systolic (congestive) heart failure; E78.5 Hyperlipidemia, unspecified; N18.9 Chronic kidney disease, unspecified; K74.60 Unspecified cirrhosis of liver; J45.909 Unspecified asthma, uncomplicated; Z79.899 Other long term (current) drug therapy; Z79.01 Long term (current) use of anticoagulants; R18.8 Other ascites; Z79.51 Long term (current) use of inhaled steroids; E80.6 Other disorders of bilirubin metabolism; I73.9 Peripheral vascular disease, unspecified; N27.1 Small kidney, bilateral; I42.9 Cardiomyopathy, unspecified; N25.0 Renal osteodystrophy
CPT/HCPCS: 36415; 71045-TC; 76700-TC; 76942-TC; 80048-TC; 80061-TC; 80076-TC; 83735-TC; 83880; 84100-TC; 84443-TC; 84484-TC; 85025-TC; 85610-TC; 87081-TC; 88108-TC; 88305-TC; 88312-TC; 93307-TC; 93971-TC; 97116-TC; 97530-TC; A4216; G0378; J1940; J3490; J7050

== ENCOUNTER 2020-02-23 01:06 | Emergency (ER) | payer OTHER ==
[~2020-02-23] VITALS: Ht 188 cm; Wt 86.2 kg
[2020-02-23 01:06] VITALS: BP 128/78
[2020-02-23] MEDS ORDERED: GELATIN SPONGE,ABSORBABLE 1 SPONGE SPONGE TP ONE ×2 (01:12→01:30)
--- NOTE | 2020-02-23 01:34 | NUR ---
PATIENT'S LEFT ASIF IS NOT BLEEDING. SITE OF PREVIOUS BLEED HAS CLOTTED. NO ACTIVE BLEEDING. PATIENT'S FOOT IS CLEANED AND WRAPPED WITH NEW GAUZE.
--- NOTE | 2020-02-23 01:42 | NUR ---
Patient discharged to home in stable condition. Written and verbal after care instructions given. Patient verbalizes understanding of instruction.
--- NOTE | 2020-02-23 01:50 | NUR ---
Patient is ambulatory with a steady gait.
== END 2020-02-23 01:57 | disposition home or self-care (01) ==
LOC: ER 01:07
DX: I83.892 Varicose veins of left lower extremity with other complications (principal); I11.0 Hypertensive heart disease with heart failure; I50.9 Heart failure, unspecified; I48.91 Unspecified atrial fibrillation; Z60.2 Problems related to living alone; Z79.899 Other long term (current) drug therapy

== ENCOUNTER 2020-02-25 15:22 | Inpatient (IN) | payer OTHER ==
[2020-02-25] VITALS: BP 106/78
[~2020-02-25] VITALS: Ht 185.4 cm; Wt 83.9 kg
--- NOTE | 2020-02-25 15:44 | NUR ---
BIB TO ER BED 6. AAOX4. NOT IN RESP DISTRESS, BREATHING EVEN AND UNLABORED. AMBULATORY. CAME IN FOR COUGHT AND CONGESTION FOR THE PAST 4 DAYS AND DEVELOPED SOB TODAY. PER PT, HE RAN OUT OF HIS LASIX FOR THE PAST 4 DAYS. PT IS ON MONITOR. MD AT BEDSIDE FOR EVAL.
[2020-02-25 16:06] LABS: BASOPHILS # (AUTO) 0.1 /CMM (0.0-0.2); BASOPHILS % (AUTO) 1.2 % (0.0-2.0); EOSINOPHILS % (AUTO) 1.6 % (0.0-6.0); HEMATOCRIT 39 % (39-51); HEMOGLOBIN 12.7 g/dL (13.5-17.5); LYMPHOCYTES # (AUTO) 1.2 /CMM (0.8-4.8); MEAN CORPUSCULAR HGB CONC 33 g/dl (31.0-36.0); MEAN CORPUSCULAR VOLUME 108 fL (80-96); MONOCYTES # (AUTO) 1.1 /CMM (0.1-1.30); MONOCYTES % (AUTO) 17.4 % (2.0-12.0); NEUTROPHILS # (AUTO) 3.9 /CMM (1.8-8.9); NEUTROPHILS % (AUTO) 60.8 % (43.0-81.0); PLATELET COUNT (AUTO) 147 /CMM (150-450); RED BLOOD CELL COUNT(AUTO) 3.61 MIL/uL (4.5-6.0); WHITE BLOOD COUNT (AUTO) 6.4 K/uL (4.3-11.0)
[2020-02-25 16:15] LABS: CALCIUM, SERUM 9.2 mg/dL (8.5-10.1); CARBON DIOXIDE 23 mmol/L (21-32); CHLORIDE 97 mmol/L (98-107); CREATININE 1.9 mg/dL (0.6-1.3); GLUCOSE 80 mg/dL (74-106); POTASSIUM 4.4 mmol/L (3.5-5.1); SODIUM SERUM 136 mmol/L (136-145); UREA NITROGEN, BLOOD 37 mg/dL (7-18)
[2020-02-25 16:27] LABS: ALANINE AMINOTRANSFERASE 136 U/L (12-78); ALBUMIN 3.7 g/dL (3.4-5.0); ALCOHOL, BLOOD 22 mg/dL (0-0); ALKALINE PHOSPHATASE 187 U/L (46-116); ASPARTATE AMINOTRANSFERASE 210 U/L (15-37); B-TYPE NATRIURETIC PEPTIDE 41085 PG/ML (0-125); BILIRUBIN,DIRECT 1.8 mg/dL (0.0-0.2)
[2020-02-25 16:34] LABS: ACETAMINOPHEN < 2 ug/ml (10-30); SALICYLATE < 0.2 mg/dL (2.8-20.0)
[2020-02-25 16:54] LABS: BASOPHILS % (MANUAL) 1 % (0.0-2.0); EOSINOPHILS % (MANUAL) 2 % (0-4); LYMPHOCYTES % (MANUAL) 18 % (16-48); MONOCYTES % (MANUAL) 17 % (0-11.0); NEUTROPHILS % (MANUAL) 62 (42-76)
--- NOTE | 2020-02-25 17:45 | NUR ---
NURSING SUP AWARE OF TELE BED REQUEST
--- NOTE | 2020-02-25 20:11 | NUR ---
CALLED NURSING SUP FOR TELE BED
--- NOTE | 2020-02-25 21:16 | NUR ---
REPORT GIVEN TO EMANI JONES FOR CHERYL.
[2020-02-25 21:35] VITALS: BP 110/73
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
--- NOTE | 2020-02-25 21:40 | NUR ---
PT TRANSPORTED TO UNIT ON [place] WITH EMT AND RN AT BEDSIDE WITH ACLS PROTOCOL. NAD NOTED DURING TRANSPORT. PT AMBULATED FROM GURNEY TO BED ON STEADY GAIT W/O ASSIST.
[2020-02-25 21:45] VITALS: BP 110/73
[2020-02-25] MEDS ORDERED: ACETAMINOPHEN 325 MG TABLET PO PRN (22:30)
[2020-02-25] MEDS ORDERED: BUMETANIDE INJ 8 MG in IV NS 0.9% 48 ML IV ONE (22:30)
[2020-02-25] MEDS ORDERED: Z GUARD REMEDY 2 OZ OINT TP PRN (22:30)
[2020-02-25] MEDS ORDERED: ALBUTEROL SULFATE INH 18 GM HFA.AER.AD IH PRN (22:30)
[2020-02-25] MEDS ORDERED: ZOLPIDEM TARTRATE 5 MG TABLET PO PRN (22:30)
[2020-02-25] MEDS ORDERED: HYDROCODONE/APAP 10/325MG TABLET PO PRN (22:30)
[2020-02-25] MEDS ORDERED: ONDANSETRON HCL/PF 4 MG/2 ML VIAL IVP PRN (22:30)
[2020-02-25] MEDS: CARVEDILOL 6.25 MG TABLET PO SCH ×2 (22:38→23:10)
[2020-02-25] MEDS ORDERED: BUMETANIDE INJ 0.25 MG/ML VIAL ONE (22:54)
[2020-02-26] VITALS (7 sets, daily range): BP systolic 93–108; BP diastolic 58–78
--- NOTE | 2020-02-26 00:37 | NUR ---
TRADE RECRUITER NOTES VTE SCORE OF 5, MD MADE AWARE; AWAITING FOR MD ORDERS; WILL CONT TO MONITOR
--- NOTE | 2020-02-26 00:50 | NUR ---
SHIP'S CARPENTER NOTES PER DR. VINCENT SON, PATIENT RECEIVING XARELTO IN AM SHOULD COVER CHEMICAL PROPHYLAXIS; PATIENT REFUSING DVT PUMPS; CONTRADICTION ALSO NOTED, PATIENT HAS BILATERAL LOWER LEG EDEMA
--- NOTE | 2020-02-26 00:59 | NUR ---
STRAIGHTEDGE WORKER NOTES PATIENT AGITATED/ANXIOUS; PATIENT DOES NOT WANT TO BE "LOCKED IN A BED", PATIENT VERBALIZED HE DID NOT WANT TO BE ADMITTED, PATIENT JUST WANTED LASIX TO BE GIVEN TO HIM SO HE CAN FEEL BETTER; PATIENT EDUCATED ON TREATMENT PLAN; PATIENT STILL FRUSTRATED AND DOES NOT WANT TO LAY IN BED; WILL CONT TO MONITOR
[2020-02-26] MEDS ORDERED: LORAZEPAM 1 MG TABLET PO PRN (01:30)
[2020-02-26 05:00] LABS: BASOPHILS # (AUTO) 0.1 /CMM (0.0-0.2); BASOPHILS % (AUTO) 1.2 % (0.0-2.0); EOSINOPHILS % (AUTO) 3.6 % (0.0-6.0); HEMATOCRIT 39 % (39-51); HEMOGLOBIN 13.1 g/dL (13.5-17.5); LYMPHOCYTES # (AUTO) 1.2 /CMM (0.8-4.8); MEAN CORPUSCULAR HGB CONC 34 g/dl (31.0-36.0); MEAN CORPUSCULAR VOLUME 107 fL (80-96); MONOCYTES % (AUTO) 17.6 % (2.0-12.0); NEUTROPHILS # (AUTO) 3.3 /CMM (1.8-8.9); NEUTROPHILS % (AUTO) 56.6 % (43.0-81.0); PLATELET COUNT (AUTO) 133 /CMM (150-450); RED BLOOD CELL COUNT(AUTO) 3.61 MIL/uL (4.5-6.0); WHITE BLOOD COUNT (AUTO) 5.8 K/uL (4.3-11.0)
[2020-02-26 05:08] LABS: THYROID STIMULATING HORMONE 1.609 uIU/mL (0.358-3.74)
[2020-02-26 06:00] LABS: ALBUMIN 3.3 g/dL (3.4-5.0); BILIRUBIN,TOTAL 3.1 mg/dL (0.2-1.0); CALCIUM, SERUM 8.9 mg/dL (8.5-10.1); CREATININE 1.9 mg/dL (0.6-1.3); MAGNESIUM 2.1 mg/dL (1.8-2.4); PHOSPHORUS 3.8 mg/dL (2.5-4.9); TOTAL PROTEIN, SERUM 6.4 g/dL (6.4-8.2)
--- NOTE | 2020-02-26 06:38 | NUR ---
NURSE SCHOOL CLOSING NOTES PATIENT SLEEPING IN BED COMFORTABLY; A/OX3-4, EASILY AROUSABLE; SOMETIMES ANXIOUS/AGITATED; BREATHING EVEN AND UNLABORED; TOLERATING ROOM AIR WELL; NO SOB NOTED; TELE MONITOR READS AFIB 90S BPM; R AC #18 INTACT AND PATENT, FLUSHING WELL; NO S/S OF REDNESS OR INFILTRATION NOTED; PATIENT ABLE TO MAKE NEEDS KNOWN; SAFETY PRECAUTIONS IMPLEMENTED; BED LOCKED IN LOW POSITION; SIDE RAILSX2; CALL LIGHT WITHIN REACH; WILL ENDORSE CHERYL TO ONCOMING SHIFT
[2020-02-26] MEDS ORDERED: ALBUTEROL FS 2.5 MG/3 ML VIAL.NEB NEB PRN (07:00)
--- NOTE | 2020-02-26 07:25 | NUR ---
Tele/RN - Assessment Patient in bed awake, A/O x 4, no complaints overnight, afebrile, denies chest pain, stable on room air, no c/o shortness of breath, tele shows A.Fib. Saline lock on the RAC is patent and intact with no signs of infiltration. Skin is intact except for BLE discoloration/edema. Fall precautions maintained. Labs reviewed, no critical results noted. Will continue with current medical management.
[2020-02-26] MEDS ORDERED: LORAZEPAM 0.5 MG TABLET PO PRN (07:30)
[2020-02-26] MEDS: PANTOPRAZOLE 40 MG TABLET.DR PO SCH (07:37)
[2020-02-26] MEDS: BUMETANIDE (1 MG) 1 MG TABLET PO SCH ×2 (08:25→16:26)
[2020-02-26] MEDS: CARVEDILOL 6.25 MG TABLET PO SCH ×2 (08:25→20:30)
[2020-02-26] MEDS: RIVAROXABAN 10 MG TABLET PO SCH (08:26)
[2020-02-26] MEDS ORDERED: LISINOPRIL (10MG) 10 MG TABLET PO SCH (09:00)
[2020-02-26] MEDS ORDERED: DIGOXIN 0.125 MG TABLET PO SCH (09:00)
[2020-02-26] MEDS ORDERED: POTASSIUM CHLORIDE 20 MEQ TAB.PRT.SR PO SCH (09:00)
[2020-02-26] MEDS: ALLOPURINOL 100 MG TABLET PO SCH (09:30)
[2020-02-26 09:36] LABS: EOSINOPHILS % (MANUAL) 3 % (0-4); LYMPHOCYTES % (MANUAL) 25 % (16-48); MONOCYTES % (MANUAL) 18 % (0-11.0); NEUTROPHILS % (MANUAL) 54 (42-76)
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
[2020-02-26] MEDS: DIGOXIN 0.125 MG TABLET PO SCH (12:05)
--- NOTE | 2020-02-26 13:12 | NUR ---
This SW attempted to contact [facility] Sales Engineer Mau Cortes but was unsuccessful. SAMMY León's voicemail was full and this SW could not leave a message. This SW to attempt again today before end of day.
[2020-02-26 13:45] LABS: APPEARANCE,URINE CLEAR (CLEAR); BILIRUBIN,URINE NEGATIVE (NEGATIVE); BLOOD, URINE NEGATIVE Ery/uL (NEGATIVE); COLOR,URINE YELLOW (YELLOW); KETONES,URINE NEGATIVE (NEGATIVE); LEUKOCYTE ESTERASE ,URINE TRACE (NEGATIVE); NITRITE, URINE NEGATIVE (NEGATIVE); PROTEIN,URINE NEGATIVE (NEGATIVE); UGLUCOSE NEGATIVE (NEGATIVE)
[2020-02-26 13:50] LABS: CREATININE, URINE < 13.0 MG/DL (30.0-125.0); URINE SODIUM, RANDOM 57 mmol/l (40-220); URINE TOTAL PROTEIN 0.7 mg/dL (0-11.9)
[2020-02-26 14:01] LABS: BACTERIA,URINE None seen /HPF (None Seen); WBC,URINE 0-2 /HPF (0-3)
[2020-02-26 14:02] LABS: RBC,URINE 0-2 /HPF (0-2); SQUAMOUS EPITHELIAL CELL,UR Few /HPF (None Seen)
[2020-02-26 15:26] LABS: EOSINOPHIL,URINE None Seen
[2020-02-26] MEDS ORDERED: BUMETANIDE INJ 4 MG in IV NS 0.9% 24 ML IV ONE (18:00)
--- NOTE | 2020-02-26 18:30 | NUR ---
Tele/RN - End of shift summary No new events seen, stable on room air, started on Bumex drip at 10 ml/hr x 4 hours infusing well on the RAC with no signs of infiltration, tele shows A.Fib. All needs attended. Patient updated on plan of care. Will continue with current medical management.
--- NOTE | 2020-02-26 19:00 | NUR ---
TELE/RN OPENING NOTES: RECEIVED PATIENT RESTING IN BED COMFORTABLY. A/OX3-4, BREATHING EVEN AND UNLABORED. TOLERATING ROOM AIR WELL. NO SOB NOTED; TELE MONITOR READS AFIB 90S BPM; R AC #18 INTACT AND PATENT, FLUSHING WELL. PATIENT ABLE TO MAKE NEEDS KNOWN; SAFETY PRECAUTIONS IMPLEMENTED; BED LOCKED IN LOW POSITION; SIDE RAILSX2; CALL LIGHT WITHIN REACH; WILL CONTINUE TO MONITOR PT ACCORDINGLY.
[2020-02-26] MEDS ORDERED: ATORVASTATIN 40 MG TABLET PO SCH (22:00)
[2020-02-27] VITALS (7 sets, daily range): BP systolic 97–103; BP diastolic 58–70
--- NOTE | 2020-02-27 07:06 | NUR ---
TELE/RN CLOSING NOTES: PATIENT REMAINS RESTING IN BED COMFORTABLY. A/OX3-4, BREATHING EVEN AND UNLABORED. TOLERATING ROOM AIR WELL. NO SOB NOTED; TELE MONITOR READS AFIB 90S BPM WITH RVR; NO SIGNIFICANT CHANGES IN CONDITION. R AC #18 INTACT AND PATENT, FLUSHING WELL. PATIENT ABLE TO MAKE NEEDS KNOWN; SAFETY PRECAUTIONS IMPLEMENTED; BED LOCKED IN LOW POSITION; SIDE RAILSX2; CALL LIGHT WITHIN REACH; WILL CONTINUE TO MONITOR PT ACCORDINGLY.
--- NOTE | 2020-02-27 07:30 | NUR ---
Tele/RN - Assessment Patient is A/O x 4, no complaints overnight, afebrile, denies chest pain, stable on room air, no c/o shortness of breath, tele shows A.Fib. Saline lock on the RAC is patent and intact with no signs of infiltration. Skin is intact except for BLE discoloration/edema. Fall precautions maintained. Lab results pending. Will continue with current medical management.
[2020-02-27] MEDS: PANTOPRAZOLE 40 MG TABLET.DR PO SCH (07:35)
[2020-02-27 07:43] LABS: BASOPHILS # (AUTO) 0.1 /CMM (0.0-0.2); BASOPHILS % (AUTO) 0.9 % (0.0-2.0); EOSINOPHILS % (AUTO) 3.2 % (0.0-6.0); HEMATOCRIT 38 % (39-51); HEMOGLOBIN 12.6 g/dL (13.5-17.5); LYMPHOCYTES # (AUTO) 1.1 /CMM (0.8-4.8); LYMPHOCYTES % (AUTO) 18.6 % (20.0-44.0); MEAN CORPUSCULAR HGB CONC 33 g/dl (31.0-36.0); MEAN CORPUSCULAR VOLUME 106 fL (80-96); MONOCYTES # (AUTO) 0.7 /CMM (0.1-1.30); MONOCYTES % (AUTO) 12.5 % (2.0-12.0); NEUTROPHILS # (AUTO) 3.8 /CMM (1.8-8.9); NEUTROPHILS % (AUTO) 64.8 % (43.0-81.0); PLATELET COUNT (AUTO) 146 /CMM (150-450); RED BLOOD CELL COUNT(AUTO) 3.56 MIL/uL (4.5-6.0); WHITE BLOOD COUNT (AUTO) 5.9 K/uL (4.3-11.0)
[2020-02-27] MEDS: CARVEDILOL 6.25 MG TABLET PO SCH ×2 (08:05→20:58)
[2020-02-27] MEDS: BUMETANIDE (1 MG) 1 MG TABLET PO SCH ×2 (08:05→16:35)
[2020-02-27] MEDS: ALLOPURINOL 100 MG TABLET PO SCH (08:05)
[2020-02-27 08:06] LABS: ALBUMIN 2.9 g/dL (3.4-5.0); BILIRUBIN,TOTAL 1.7 mg/dL (0.2-1.0); CALCIUM, SERUM 8.3 mg/dL (8.5-10.1); CREATININE 1.5 mg/dL (0.6-1.3); PHOSPHORUS 3.2 mg/dL (2.5-4.9); POTASSIUM 3.3 mmol/L (3.5-5.1); TOTAL PROTEIN, SERUM 6.1 g/dL (6.4-8.2)
[2020-02-27] MEDS: RIVAROXABAN 10 MG TABLET PO SCH (08:07)
--- NOTE | 2020-02-27 10:13 | NUR ---
This SW attempted to contact [facility] Machine Printer Mau Cortes but was unsuccessful. SAMMY León's voicemail was full and this SW could not leave a message. This SW to attempt contacting Mau Cortes via [facility].
--- NOTE | 2020-02-27 10:19 | NUR ---
This SW attempted to contact Mau Cortes via [employer] and was unsuccessful. This SW left a voicemail on the general part time receptionist line with this SW contact information. Addendum: 02/27/20 at 1021 by JAREK CHRISTIANSON Phone number for [employer] ([place]) [phone] this SW selected 0 and was transferred to general part time receptionist line.
[2020-02-27] MEDS ORDERED: POTASSIUM CHLORIDE 10 MEQ TABLET.SA PO ONE (10:30)
--- NOTE | 2020-02-27 10:30 | NUR ---
Tele/RN - MD Order Dr. Gates with order to d/c telemetry and transfer to med-surg status with same orders.
[2020-02-27] MEDS: DIGOXIN 0.125 MG TABLET PO SCH (12:47)
--- NOTE | 2020-02-27 16:03 | NUR ---
This SW provided pair of clothes and shoes to the patient as requested. Patient to return to [facility].
--- NOTE | 2020-02-27 18:35 | NUR ---
MS/RN - End of shift summary No new events seen, on room air, denies SOB, no c/o chest pain. Anticipate discharge back to [place] housing tomorrow if stable overnight. Will continue with current medical management.
--- NOTE | 2020-02-27 19:58 | NUR ---
MS/RN OPENING NOTES: RECEIVED PATIENT RESTING IN BED COMFORTABLY, WATCHING TV. A/OX3-4, PATIENT ABLE TO MAKE NEEDS KNOWN; BREATHING EVEN AND UNLABORED. ON ROOM AIR SATURATING WELL. NO SOB NOTED. R AC #18 INTACT AND PATENT, FLUSHING WELL. SAFETY PRECAUTIONS IMPLEMENTED; BED LOCKED IN LOW POSITION; SIDE RAILSX2; CALL LIGHT WITHIN REACH; WILL CONTINUE TO MONITOR PT. ACCORDINGLY.
--- NOTE | 2020-02-27 20:30 | NUR ---
MS/RN NOTES: DR. VINCENT SON ORDERED BUMEX 4MG TO INFUSED 1MG/HR IN NS. DR. SON MADE AWARE THAT PATIENT'S BP IS ON THE LOW SIDE. DR. VINCENT SON STILL WANTS TO ADMINISTER FOR SEVERE CARDIOMYOPATHY. WILL MONITOR PT'S BP ACCORDINGLY AND OBSERVE CHANGES.
[2020-02-27] MEDS ORDERED: LIDOCAINE VISCOUS 2% UD 15 ML UDC MM PRN ×2 (22:00)
[2020-02-27] MEDS ORDERED: BUMETANIDE INJ 4 MG in IV NS 0.9% 24 ML IV ONE (22:00)
[2020-02-27] MEDS ORDERED: BUMETANIDE INJ 0.25 MG/ML VIAL ONE (22:27)
[2020-02-27] MEDS: CHLORHEXIDINE GLUCONATE 15 ML UDC MM SCH (22:51)
[2020-02-27] MEDS: CLINDAMYCIN HCL 150 MG CAPSULE PO SCH (22:51)
[2020-02-28] VITALS: BP 91/70
[2020-02-28] MEDS ORDERED: CLINDAMYCIN HCL 150 MG CAPSULE PO SCH
--- NOTE | 2020-02-28 | NUR ---
MS/RN NOTES: BUMEX STILL INFUSING. PT IS STABLE. VS WITHIN PT'S BASELINE. 91/70. HR:96 NO COMPLAINS OF PAIN AT THIS TIME. PER PT "I FEEL A LOT BETTER. I CAN BREATHE BETTER".
[2020-02-28 02:00] VITALS: BP 89/76
[2020-02-28] MEDS: CLINDAMYCIN HCL 150 MG CAPSULE PO SCH ×3 (06:34→11:04)
[2020-02-28 06:45] LABS: CREATININE 1.4 mg/dL (0.6-1.3); POTASSIUM 2.9 mmol/L (3.5-5.1)
[2020-02-28 06:50] VITALS: BP 87/56
--- NOTE | 2020-02-28 07:06 | NUR ---
MS/RN CLOSING NOTES: PATIENT REMAINS RESTING IN BED COMFORTABLY. A/OX3-4, BREATHING EVEN AND UNLABORED. TOLERATING ROOM AIR WELL. NO SOB NOTED; R AC #18 INTACT AND PATENT, FLUSHING WELL. PATIENT ABLE TO MAKE NEEDS KNOWN; FOR DC PLANNING IN THE MORNING. SAFETY PRECAUTIONS IMPLEMENTED; BED LOCKED IN LOW POSITION; SIDE RAILSX2; CALL LIGHT WITHIN REACH; WILL ENDORSE TO DAY SHIFT FOR CHERYL. Addendum: 02/28/20 at 0708 by JANELLE CASPER RN IV IS NOW ON THE RIGHT FA #[phone] G
--- NOTE | 2020-02-28 08:00 | NUR ---
MS RN NOTES PATIENT IN BED RESTING NO SOB OR ACUTE DISTRESS NOTED. PATIENT ALERT, ORIENTED X3. PERIPHERAL IV INTACT, PATENT. SAFETY MEASURES IN PLACE, WILL CONTINUE TO MONITOR.
[2020-02-28 08:07] LABS: PTH, INTACT 38 pg/mL (15-65)
[2020-02-28] MEDS: CHLORHEXIDINE GLUCONATE 15 ML UDC MM SCH (08:07)
[2020-02-28] MEDS: ALLOPURINOL 100 MG TABLET PO SCH (08:07)
[2020-02-28] MEDS: BUMETANIDE (1 MG) 1 MG TABLET PO SCH (08:07)
[2020-02-28] MEDS: PANTOPRAZOLE 40 MG TABLET.DR PO SCH (08:07)
[2020-02-28] MEDS: RIVAROXABAN 10 MG TABLET PO SCH (08:08)
[2020-02-28] MEDS ORDERED: CHLORHEXIDINE GLUCONATE 15 ML UDC MM SCH (09:00)
[2020-02-28 09:28] VITALS: BP 101/66
[2020-02-28] MEDS: CARVEDILOL 6.25 MG TABLET PO SCH (09:28)
[2020-02-28] MEDS: POTASSIUM CHLORIDE 20 MEQ TAB.PRT.SR PO SCH ×3 (10:11→12:07)
[2020-02-28] MEDS: DIGOXIN 0.125 MG TABLET PO SCH (12:56)
[2020-02-28 14:27] LABS: *SPE A/G RATIO 1.1 (0.7-1.7); *SPE ALBUMIN 2.9 g/dL (2.9-4.4); *SPE ALPHA-1-GLOBULIN 0.3 g/dL (0.0-0.4); *SPE ALPHA-2-GLOBULIN 0.5 g/dL (0.4-1.0); *SPE BETA GLOBULIN 0.8 g/dL (0.7-1.3); *SPE GLOBULIN, TOTAL 2.7 g/dL (2.2-3.9); *SPE M-SPIKE Not Observed g/dL (Not Observed); *SPEGAMMA GLOBULIN 1.1 g/dL (0.4-1.8)
[2020-02-28] MEDS ORDERED: DIGO125T PO (14:35)
[2020-02-28] MEDS ORDERED: POTA20TA83 PO (14:35)
[2020-02-28] MEDS ORDERED: CLIN150C16 PO (14:35)
[2020-02-28] MEDS ORDERED: RIVA10TA PO (14:35)
[2020-02-28] MEDS ORDERED: ATOR40TA PO (14:35)
[2020-02-28] MEDS ORDERED: PANT40TA2 PO (14:35)
[2020-02-28] MEDS ORDERED: ALLO300T2 PO (14:35)
[2020-02-28] MEDS ORDERED: BUME1TAB8 PO (14:35)
[2020-02-28] MEDS ORDERED: CHLO473M2 MM (14:35)
[2020-02-28] MEDS ORDERED: ALBU18HF2 INH (14:35)
[2020-02-28] MEDS ORDERED: LISI10TA5 PO (14:35)
[2020-02-28] MEDS ORDERED: CARV6.252 PO (14:35)
--- NOTE | 2020-02-28 17:00 | NUR ---
MS RN NOTES PATIENT DISCHARGED HOME IN STABLE CONDITION. DISCHARGE INSTRUCTIONS PROVIDED, VERBALIZED UNDERSTANDING. PATIENT NONE COMPLIANT WITH MEDICATIONS AT HOME. [facility] CALLED, MEDICATIONS ARE READY FOR DIELECTRIC TESTER. ALL BELONGINGS ACCOUNTED FOR, BELONGING LIST SIGNED. MD AWARE OF ALL ABNORMAL LABS AND TESTS. PATIENT REFUSED DISCHARGE PICTURES. PATIENT OFFERED BUS PASS HE REFUSED. PATIENT HAS A FRIEND TO PICK HIM UP. PERIPHERAL IV REMOVED. ID BAND REMOVED. PATIENT ESCORTED TO CAR BY DIRECTOR DIETETICS DEPARTMENT.
== END 2020-02-28 17:02 | disposition home or self-care (01) | DRG 194 ==
LOC: ER 15:22 → TELE 20:52 → MED 02-27 13:13
PROVIDERS: ADMIT Nurse Practitioner Acute Care; ATTEND Nurse Practitioner Acute Care
DX: I11.0 Hypertensive heart disease with heart failure (principal); I50.43 Acute on chronic combined systolic (congestive) and diastolic (congestive) heart failure; K74.60 Unspecified cirrhosis of liver; K76.6 Portal hypertension; N17.0 Acute kidney failure with tubular necrosis; I48.91 Unspecified atrial fibrillation; I42.9 Cardiomyopathy, unspecified; K21.9 Gastro-esophageal reflux disease without esophagitis; I27.20 Pulmonary hypertension, unspecified; D68.59 Other primary thrombophilia; D69.59 Other secondary thrombocytopenia; D68.9 Coagulation defect, unspecified; E78.5 Hyperlipidemia, unspecified; D64.9 Anemia, unspecified; I73.9 Peripheral vascular disease, unspecified; Z79.899 Other long term (current) drug therapy; M10.9 Gout, unspecified; F19.90 Other psychoactive substance use, unspecified, uncomplicated; I31.3 Pericardial effusion (noninflammatory); I34.0 Nonrheumatic mitral (valve) insufficiency; J45.909 Unspecified asthma, uncomplicated; R18.8 Other ascites; Z91.19 Patient's noncompliance with other medical treatment and regimen; Z79.01 Long term (current) use of anticoagulants; N18.9 Chronic kidney disease, unspecified; I13.0 Hypertensive heart and chronic kidney disease with heart failure and stage 1 through stage 4 chronic kidney disease, or unspecified chronic kidney disease; Z59.0 Homelessness; K05.10 Chronic gingivitis, plaque induced; E80.6 Other disorders of bilirubin metabolism
CPT/HCPCS: 36415; 71045-TC; 76705-TC; 80048-TC; 80053-TC; 80061-TC; 80076-TC; 80162-TC; 80305; 81000-TC; 82140-TC; 82550-TC; 82570-TC; 83735-TC; 83880; 83970; 84100-TC; 84155; 84155-TC; 84165; 84300-TC; 84443-TC; 84484-TC; 85025-TC; 85730-TC; 87081-TC; 93307-TC; C9803-CS; G0378; G0480; J3490; J7030; J7050

== ENCOUNTER 2020-08-26 17:41 | Inpatient (IN) | payer OTHER ==
[~2020-08-26] VITALS: Ht 188 cm; Wt 85.9 kg
[~2020-08-26 17:41] MED LIST changes: +CHLO473M2 MM; +CLIN150C16 PO; +LISI10TA29 PO; -LISI10TA5 PO
--- NOTE | 2020-08-26 17:53 | NUR ---
[id number] FROM [employer] C/O SOB 80%RA, GIVEN 1 SPRAY OF NITRO IN FIELD. PT STATES THAT HE BEGAN FEELING SOB THIS AFTERNOON AFTER HE CONSUMED MORE FLUID THAN NORMAL. PT AA&OX3, ANXIOUS. DENIES SOB AT PRESENT. DRY, NON-PRODUCTIVE COUGH NOTED. PT CONNECTED TO TRACK GRINDER OPERATOR, SPO2 MONITOR, AND BP MONITOR. VSS. HOSPITAL GOWN AND WARM BLANKETS PROVIDED.
--- NOTE | 2020-08-26 18:00 | NUR ---
DR BRANTLEY AT BEDSIDE
--- NOTE | 2020-08-26 18:05 | NUR ---
CERTIFIED FLEX ENDOSCOPE REPROCESSOR AT BEDSIDE PERFORMING EKG.
[2020-08-26 18:27] LABS: LYMPHOCYTES # (AUTO) 0.6 /CMM (0.8-4.8); MONOCYTES # (AUTO) 0.3 /CMM (0.1-1.30)
[2020-08-26 18:30] LABS: BASOPHILS % (AUTO) 0.7 % (0.0-2.0); EOSINOPHILS % (AUTO) 0.1 % (0.0-6.0); HEMATOCRIT 40 % (39-51); HEMOGLOBIN 13.3 g/dL (13.5-17.5); MEAN CORPUSCULAR HGB CONC 34 g/dl (31.0-36.0); MEAN CORPUSCULAR VOLUME 105 fL (80-96); MONOCYTES % (AUTO) 9.1 % (2.0-12.0); NEUTROPHILS # (AUTO) 2.3 /CMM (1.8-8.9); NEUTROPHILS % (AUTO) 71.1 % (43.0-81.0); PLATELET COUNT (AUTO) 94 /CMM (150-450); RED BLOOD CELL COUNT(AUTO) 3.77 MIL/uL (4.5-6.0); WHITE BLOOD COUNT (AUTO) 3.2 K/uL (4.3-11.0)
[2020-08-26 18:45] LABS: ALBUMIN 3.1 g/dL (3.4-5.0); BILIRUBIN,DIRECT 1.5 mg/dL (0.0-0.2); CREATININE 2.5 mg/dL (0.6-1.3)
[2020-08-26] MEDS ORDERED: NITROGLYCERIN 0.4 MG/TAB BOTTLE ONE (18:54)
[2020-08-26] MEDS ORDERED: NITROGLYCERIN 0.4 MG/TAB BOTTLE SL ONE (19:00)
--- NOTE | 2020-08-26 19:05 | NUR ---
called rt for bipap per dr. mark
--- NOTE | 2020-08-26 19:09 | NUR ---
called [facility] [employer] dr. johansen .
--- NOTE | 2020-08-26 19:15 | NUR ---
RT AT BEDSIDE SETTING UP BIPAP ORD.
--- NOTE | 2020-08-26 19:15 | NUR ---
RAPID COVID PERFORMED AND SENT TO LAB.
--- NOTE | 2020-08-26 19:17 | NUR ---
dr. mark spoke to dr. sacha shaffergin plan of care.
[2020-08-26] MEDS ORDERED: ASPIRIN 81 MG TAB.CHEW ONE (19:25)
[2020-08-26] MEDS ORDERED: ASPIRIN 81 MG TAB.CHEW PO ONE (19:30)
[2020-08-26 19:35] LABS: LYMPHOCYTES % (MANUAL) 21 % (16-48); MONOCYTES % (MANUAL) 8 % (0-11.0); NEUTROPHILS % (MANUAL) 71 (42-76)
[2020-08-26] MEDS ORDERED: FUROSEMIDE 20 MG/2 ML VIAL ONE (19:52)
[2020-08-26] MEDS ORDERED: FUROSEMIDE 20 MG/2 ML VIAL IV ONE ×2 (20:00→21:30)
--- NOTE | 2020-08-26 20:06 | NUR ---
+ covid per lab
--- NOTE | 2020-08-26 20:12 | NUR ---
RT CALLED TO TAKE BIPAP OFF AND PLACE PT ON HI-FLOW O2 PER ER MD ORDER.
--- NOTE | 2020-08-26 20:23 | NUR ---
ICU 254
--- NOTE | 2020-08-26 20:37 | NUR ---
REPORT GIVEN TO CECE JOAQUIN FOR CHERYL.
--- NOTE | 2020-08-26 20:57 | NUR ---
PATIENT BROUGHT UP TO ASSIGNED ROOM FOR CHERYL.
[2020-08-26 21:00] VITALS: BP 154/76
--- NOTE | 2020-08-26 21:00 | NUR ---
RECEIVED PATIENT FROM ER,WHO PRESENTED WITH SUDDEN SOB,PALPITATION AND INCREASING LEG SWELLING. Hx CHF with EF 10 %,AFIB,HTN,GOUT. MRY=[id number] was given LASIX in ER.tested + for COVID rapid test, CXR showed Pulmonary edema ,Pneumonia.Was placed on High Flow . Awake,alert,converses,coherent and appropriate,+ SOB,+ productive cough. + bilateral lower legs edema.Noted wound of posterior lower right leg.
[2020-08-26 21:25] LABS: C-REACTIVE PROTEIN 19.9 mg/dL (0.0-0.9)
[2020-08-26] MEDS ORDERED: ACETAMINOPHEN 325 MG TABLET PO PRN (21:30)
[2020-08-26] MEDS ORDERED: ZOLPIDEM TARTRATE 5 MG TABLET PO PRN (21:30)
[2020-08-26] MEDS ORDERED: AZITHROMYCIN 250 MG TABLET PO SCH (21:30)
[2020-08-26] MEDS ORDERED: MAGNESIUM HYDROXIDE 30 ML UDC PO PRN (21:30)
[2020-08-26] MEDS ORDERED: ONDANSETRON HCL/PF 4 MG/2 ML VIAL IVP PRN (21:30)
[2020-08-26] MEDS ORDERED: Z GUARD REMEDY 2 OZ OINT TP PRN (21:30)
[2020-08-26] MEDS ORDERED: IV NS 0.9% 250 ML IV PRN (21:30)
[2020-08-26] MEDS ORDERED: HYDROCODONE/APAP 5/325MG TABLET PO PRN (21:30)
[2020-08-26 22:03] VITALS: BP 99/74
[2020-08-26] MEDS: DEXAMETHASONE SOD PHOSPHATE 10 MG/ML VIAL IV SCH (22:11)
[2020-08-26] MEDS ORDERED: CEFTRIAXONE 1 G VIAL ONE (22:12)
[2020-08-26] MEDS: APIXABAN 2.5 MG TABLET PO SCH (22:13)
[2020-08-26 22:17] VITALS: BP 105/34
[2020-08-26] MEDS: CEFTRIAXONE 1 G in IV D5W 50 ML IV SCH (22:29)
[2020-08-26 22:30] VITALS: BP 87/40
[2020-08-26 23:00] VITALS: BP 91/68
--- NOTE | 2020-08-26 23:00 | NUR ---
MD PHARMACY TECHNICIAN PROGRAM DIRECTOR CAME TO SEE PATIENT(AGUSTIN CURTIS NP), SPOKE TO PATIENT DISCUSS AND ASKED ABOUT POSSIBILITY OF GETTING INTUBATED IF NEEDED,PATIENT DOES NOT WANT TO BE INTUBATED AND DOES NOT WANT ANY CHEST COMPRESSION IF HIS HEART STOPS.
[2020-08-26 23:15] VITALS: BP 119/69
[2020-08-27] VITALS (50 sets, daily range): BP systolic 76–158; BP diastolic 20–96
--- NOTE | 2020-08-27 | NUR ---
BECAME VERY UNCOOPERATIVE,WANTS TO GET OUT OF BED AND WALK AROUND,SITTING UP AT EDGE OF THE BED,EXPLAINED TO HIM WHY HE CAN NOT GET UP AND WALK AROUND.STILL DID NOT WANT TO COOPERATE,TOOK OFF HIS OXYGEN ,WANTS TO GO HOME,SIGN OUT AMA DESPITE EXPLAINING WHY IT'S NOT SAFE FOR HIM TO GO HOME.CALLED SECURITY AT BEDSIDE TO ASSIST STAFF TO CALM HIM DOWN AND CONVINCE HIM TO COOPERATE.NURSING NAIL TECH WAS MADE AWARE BY THE CHARGE NURSE. ALDEN CURTIS WAS ALSO CALLED AND MADE AWARE THAT PATIENT WANTS TO SIGN AMA.
--- NOTE | 2020-08-27 00:15 | NUR ---
PATIENT CHANGED HIS MIND ,NOW WANTS TO STAY .
--- NOTE | 2020-08-27 01:00 | NUR ---
CONTINUOUSLY RESTLESS ,SITTING IN AND OUT AT EDGE OF BED, AT TIMES STANDING UP ,STATES HE FEELS TOO MUCH FLUID IN HIS CHEST THAT HE NEEDS TO GET UP.REMAINS TACHYCARDIC SINCE HE'S BEEN RESTLESS IN AND OUT OF BED.
[2020-08-27] MEDS: FUROSEMIDE 40 MG/4 ML VIAL IV SCH ×2 (01:59→05:27)
--- NOTE | 2020-08-27 04:00 | NUR ---
A LITTLE CALMER,LOOKS MORE COMFORTABLE,LESS SHORT OF BREATH.
[2020-08-27 04:20] LABS: BASOPHILS % (AUTO) 0.5 % (0.0-2.0); HEMATOCRIT 39 % (39-51); LYMPHOCYTES # (AUTO) 0.4 /CMM (0.8-4.8); LYMPHOCYTES % (AUTO) 11.6 % (20.0-44.0); MEAN CORPUSCULAR HGB CONC 33 g/dl (31.0-36.0); MEAN CORPUSCULAR VOLUME 105 fL (80-96); MONOCYTES # (AUTO) 0.3 /CMM (0.1-1.30); MONOCYTES % (AUTO) 7.8 % (2.0-12.0); NEUTROPHILS # (AUTO) 2.6 /CMM (1.8-8.9); NEUTROPHILS % (AUTO) 80.1 % (43.0-81.0); RED BLOOD CELL COUNT(AUTO) 3.74 MIL/uL (4.5-6.0); WHITE BLOOD COUNT (AUTO) 3.3 K/uL (4.3-11.0)
[2020-08-27 04:35] LABS: CREATININE 2.4 mg/dL (0.6-1.3); MAGNESIUM 2.2 mg/dL (1.8-2.4); PHOSPHORUS 6.2 mg/dL (2.5-4.9); POTASSIUM 4.1 mmol/L (3.5-5.1)
[2020-08-27 05:35] LABS: PLATELET COUNT (AUTO) 90 /CMM (150-450)
--- NOTE | 2020-08-27 06:00 | NUR ---
SITTING AT EDGE OF THE BED ,NOT IN ANY DISTRESS,STILL ON HIGH FLOW ( NOW 40 LITERS/30 % FIO2.
--- NOTE | 2020-08-27 07:30 | NUR ---
Report given to Windy JOAQUIN.(primary RN Adi running late),endorsed that patient is in a commode.
[2020-08-27] MEDS ORDERED: METO-358 PO (08:22)
[2020-08-27] MEDS ORDERED: FURO40TA5 PO (08:22)
[2020-08-27] MEDS: APIXABAN 2.5 MG TABLET PO SCH ×2 (08:22→18:29)
[2020-08-27] MEDS ORDERED: BENA20TA9 PO (08:22)
[2020-08-27] MEDS: DEXAMETHASONE SOD PHOSPHATE 10 MG/ML VIAL IV SCH (08:23)
[2020-08-27] MEDS ORDERED: BUMETANIDE INJ 8 MG in IV NS 0.9% 48 ML IV ONE (09:00)
[2020-08-27] MEDS ORDERED: ALBUTEROL SULFATE 8 GM HFA.AER.AD IH PRN (10:00)
--- NOTE | 2020-08-27 14:38 | NUR ---
Press Reader Consult: Press Reader consult was requested by Physician Branden due to homelessness and pt being noncompliant. Pt is a 59 year old male who was admitted to [facility] on 08/26/20 for chronic heart failure. Pt is COVID positive so the SW conducted the assessment through the phone and briefly met with the pt to assess him visually. Pt appears to be alert and oriented x4 (time, place, self and situation). Pt appears to be disheveled and ungroomed. Pt appears to be malodorous as well. Pt states that he has been in a lot of pain and states, "I scream all night." Pt states that he has not been eating or sleeping appropriately and that he cannot even move or walk because he is in so much pain. Pt appears to be in a depressed mood and presents with an anxious affect. Pt denies suicidal and homicidal ideation as well as auditory and visual hallucinations. Pt states that he lives in an apartment by himself located [place] [address], [place], [place]. SW spoke with Infection Control Arpi who stated that the pts online communications manager does not need to be notified regarding covid status as he lives alone. Pt states that he does not have any support systems and that he takes care of himself. Pt states that his apartment is [address] 8 Housing and he uses his social security to pay for it. He states that he just recently paid rent a few days ago and that he would like to return to his home. Plan: Pt is not homeless and resides at [address], [address], [place], [place]. Pt would like to return to his home once he is stable.
[2020-08-27] MEDS: DOXYCYCLINE HYCLATE (100 MG) 100 MG TABLET PO SCH ×2 (15:20→20:04)
[2020-08-27 16:11] LABS: BILIRUBIN,URINE NEGATIVE (NEGATIVE); COLOR,URINE YELLOW (YELLOW); LEUKOCYTE ESTERASE ,URINE NEGATIVE (NEGATIVE); NITRITE, URINE NEGATIVE (NEGATIVE); PROTEIN,URINE NEGATIVE (NEGATIVE); UGLUCOSE NEGATIVE (NEGATIVE); UROBILINOGEN,URINE 0.2 EU/dL (0.2)
[2020-08-27 16:28] LABS: BACTERIA,URINE None seen /HPF (None Seen); RBC,URINE 21-50 /HPF (0-2); SQUAMOUS EPITHELIAL CELL,UR 0-2 /HPF (None Seen); WBC,URINE 0-2 /HPF (0-3)
[2020-08-27] MEDS ORDERED: FUROSEMIDE 80 MG TABLET PO SCH (18:00)
[2020-08-27] MEDS ORDERED: FUROSEMIDE 40 MG TABLET PO ONE (20:00)
[2020-08-27] MEDS: CEFTRIAXONE 1 G in IV D5W 50 ML IV SCH (21:39)
--- NOTE | 2020-08-27 23:27 | NUR ---
NOTIFIED KIRSTEN GUN BARREL FINISHER OF PATIENT REQUEST FOR SOMETHING TO SLEEP TONIGHT. RECEIVED TELEPHONE ORDER FOR 7.5 MG RESTORIL PO ONCE.
[2020-08-28] VITALS (44 sets, daily range): BP systolic 81–159; BP diastolic 36–94
[2020-08-28] MEDS ORDERED: TEMAZEPAM 7.5 MG CAPSULE PO PRN
[2020-08-28 04:29] LABS: BASOPHILS % (AUTO) 0.5 % (0.0-2.0); EOSINOPHILS % (AUTO) 0.1 % (0.0-6.0); HEMATOCRIT 39 % (39-51); HEMOGLOBIN 12.9 g/dL (13.5-17.5); LYMPHOCYTES # (AUTO) 0.4 /CMM (0.8-4.8); LYMPHOCYTES % (AUTO) 4.1 % (20.0-44.0); MEAN CORPUSCULAR HGB CONC 34 g/dl (31.0-36.0); MEAN CORPUSCULAR VOLUME 104 fL (80-96); MONOCYTES # (AUTO) 0.3 /CMM (0.1-1.30); MONOCYTES % (AUTO) 3.3 % (2.0-12.0); NEUTROPHILS # (AUTO) 8.6 /CMM (1.8-8.9); PLATELET COUNT (AUTO) 93 /CMM (150-450); WHITE BLOOD COUNT (AUTO) 9.3 K/uL (4.3-11.0)
[2020-08-28 04:43] LABS: ALBUMIN 2.5 g/dL (3.4-5.0); BILIRUBIN,TOTAL 1.3 mg/dL (0.2-1.0); CALCIUM, SERUM 8.2 mg/dL (8.5-10.1); CREATININE 1.9 mg/dL (0.6-1.3); PHOSPHORUS 4.1 mg/dL (2.5-4.9); TOTAL PROTEIN, SERUM 5.8 g/dL (6.4-8.2)
[2020-08-28 04:49] LABS: POTASSIUM 2.8 mmol/L (3.5-5.1)
[2020-08-28] MEDS: PANTOPRAZOLE 40 MG TABLET.DR PO SCH (07:41)
--- NOTE | 2020-08-28 07:46 | NUR ---
WOUND CARE CONSULT: REVIEWED CHART, NURSING DOCUMENTATION AND PHOTOS WHICH INDICATE WOUNDS TO RT LOWER LEG AND BELOW RT KNEE, PRESENT ON ADMISSION. RECOMMEND DPM CONSULT. DR NGUYEN NOTIFIED OF CONSULT REQUEST. RECOMMENDATIONS MADE FOR SKIN PROTECTION. DISCUSSED WITH NURSING STAFF. MD IN AGREEMENT WITH PLAN OF CARE.
[2020-08-28] MEDS: POTASSIUM CL. PREMIX PERIPHER. 50 ML IV SCH ×4 (07:51→11:00)
[2020-08-28] MEDS ORDERED: POTASSIUM CHLORIDE 20 MEQ TAB.PRT.SR PO ONE (08:00)
[2020-08-28] MEDS: DEXAMETHASONE SOD PHOSPHATE 10 MG/ML VIAL IV SCH (08:10)
[2020-08-28] MEDS: RIVAROXABAN 10 MG TABLET PO SCH (08:11)
[2020-08-28] MEDS: DOXYCYCLINE HYCLATE (100 MG) 100 MG TABLET PO SCH ×2 (08:11→21:01)
[2020-08-28] MEDS: ATORVASTATIN 40 MG TABLET PO SCH (08:11)
[2020-08-28] MEDS ORDERED: BUMETANIDE INJ 8 MG in IV NS 0.9% 48 ML IV ONE (08:30)
[2020-08-28] MEDS: METOPROLOL SUCCINATE 50 MG TAB.SR.24H PO SCH (09:00)
[2020-08-28] MEDS ORDERED: BENAZEPRIL HCL 20 MG TABLET PO SCH (09:00)
--- NOTE | 2020-08-28 09:20 | NUR ---
pt unable to tolerate potassium IV infusion. pt complaints of increase burning, IV site changed, medication was infused together with normal saline @ 100 ml/hr to reduce discomfort, still pt continue to refused infusion of medication. He reports initial complaints to MD about potassium IV infusion. Pt seems to have increased anxiety with potassium IV even before initiating infusion, pt was already crying and restless. pt received a total of 80 mEq of potassium oral.
[2020-08-28] MEDS: POTASSIUM CHLORIDE 20 MEQ TAB.PRT.SR PO SCH ×4 (09:56→12:28)
--- NOTE | 2020-08-28 19:15 | NUR ---
RN NOTE RECEIVED PT AWAKE AND ALERT/ORIENTED X 3 IN BED IN HIGH TAPIA'S POSITION EATING REMAINDER OF DINNER. PT ON 4L OF O2 VIA NC. RESPIRATIONS TACHYPNEIC, PT DENIES PAIN OR DISCOMFORT. PT AFIB ON THE BEDSIDE MONITOR READING 110-120 PER MINUTE. ALL OTHER VITAL SIGNS STABLE. URINAL AT BEDSIDE REACHABLE. WITH LEFT AC IV AND LEFT WRIST IV BOTH FLUSHED AND PATENT. ASSISTED PT IN REPOSITIONING FOR COMFORT. PLAN OF CARE DISCUSSED, CALL LIGHT WITHIN REACH, SAFETY MEASURES IN PLACE PER PROTOCOL, BED ALARM ON, BED LOCKED AND IN LOW POSITION, SIDE RAILS UP X 3, WILL MONITOR PATIENT AND CARRY OUT ACTIVE MD ORDERS.
--- NOTE | 2020-08-28 20:26 | NUR ---
RN NOTE RECEIVED ORDER FROM AGUSTIN RUANO TO GIVE NORCO 5/325MG PO Q4H PRN FOR MODERATE PAIN. ORDER NOTED AND CARRIED OUT.
[2020-08-28] MEDS: HYDROCODONE/APAP 5/325MG TABLET PO PRN (20:35)
[2020-08-28] MEDS: CEFTRIAXONE 1 G in IV D5W 50 ML IV SCH (21:01)
[2020-08-29] VITALS (36 sets, daily range): BP systolic 76–144; BP diastolic 20–89
[2020-08-29] MEDS: HYDROCODONE/APAP 5/325MG TABLET PO PRN ×2 (02:24→08:26)
[2020-08-29 04:39] LABS: BASOPHILS % (AUTO) 0.3 % (0.0-2.0); HEMATOCRIT 36 % (39-51); HEMOGLOBIN 12.2 g/dL (13.5-17.5); LYMPHOCYTES # (AUTO) 0.2 /CMM (0.8-4.8); LYMPHOCYTES % (AUTO) 1.8 % (20.0-44.0); MEAN CORPUSCULAR HGB CONC 34 g/dl (31.0-36.0); MEAN CORPUSCULAR VOLUME 103 fL (80-96); MONOCYTES # (AUTO) 0.3 /CMM (0.1-1.30); MONOCYTES % (AUTO) 2.7 % (2.0-12.0); NEUTROPHILS # (AUTO) 11.9 /CMM (1.8-8.9); NEUTROPHILS % (AUTO) 95.2 % (43.0-81.0); PLATELET COUNT (AUTO) 104 /CMM (150-450); RED BLOOD CELL COUNT(AUTO) 3.47 MIL/uL (4.5-6.0); WHITE BLOOD COUNT (AUTO) 12.6 K/uL (4.3-11.0)
[2020-08-29 04:56] LABS: CALCIUM, SERUM 8.3 mg/dL (8.5-10.1); CREATININE 1.6 mg/dL (0.6-1.3); POTASSIUM 3.5 mmol/L (3.5-5.1)
--- NOTE | 2020-08-29 06:40 | NUR ---
RN NOTE RECEIVED ALERT FOR CK MB 20.6. MD MADE ORDER FOR STAT TROPONIN. TROPONIN RESULTED SHOWING 0.117 TRENDING DOWNWARD.
--- NOTE | 2020-08-29 06:41 | NUR ---
RN NOTE PT AWAKE AND ALERT IN BED IN HIGH TAPIA'S POSITION PER REQUEST. ON 5L OF O2 VIA NC. IN NO APPARENT DISTRESS. DENIES SHORTNESS OF BREATH OR CHEST PAIN. PT REPEATEDLY ASKING FOR WATER. RE-EDUCATED PT ON FLUID RESTRICTION AND PROVIDED PT WITH ICE CHIPS. CALL LIGHT WITHIN REACH.
--- NOTE | 2020-08-29 07:15 | NUR ---
ROLL FORM OPERATOR OPENING NOTE RECEIVED REPORT FROM PM NURSE.PT AWAKE AND ALERT/ORIENTED .IN BED IN HIGH TAPIA'S POSITION . PT ON 5L O2 VIA NC.TACHYPNEIC, PT DENIES PAIN OR DISCOMFORT.AFIB ON THE BEDSIDE MONITOR . URINAL AT BEDSIDE REACHABLE. WITH LEFT AC IV AND LEFT WRIST IV BOTH FLUSHED AND PATENT. ASSISTED PT IN REPOSITIONING FOR COMFORT. PLAN OF CARE DISCUSSED, CALL LIGHT WITHIN REACH, SAFETY MEASURES IN PLACE PER PROTOCOL, BED ALARM ON, BED LOCKED AND IN LOW POSITION, SIDE RAILS UP X 3, WILL CONTINUE TO MONITOR PATIENT .
[2020-08-29 08:07] LABS: PTH, INTACT 40 pg/mL (15-65)
[2020-08-29] MEDS: DEXAMETHASONE SOD PHOSPHATE 10 MG/ML VIAL IV SCH (08:16)
[2020-08-29] MEDS: PANTOPRAZOLE 40 MG TABLET.DR PO SCH (08:17)
[2020-08-29] MEDS: METOPROLOL SUCCINATE 50 MG TAB.SR.24H PO SCH (08:17)
[2020-08-29] MEDS: ATORVASTATIN 40 MG TABLET PO SCH (08:17)
[2020-08-29] MEDS: POTASSIUM CHLORIDE 20 MEQ TAB.PRT.SR PO SCH (08:18)
[2020-08-29] MEDS: RIVAROXABAN 10 MG TABLET PO SCH (08:19)
[2020-08-29] MEDS: DOXYCYCLINE HYCLATE (100 MG) 100 MG TABLET PO SCH ×2 (08:19→20:58)
[2020-08-29 09:01] LABS: BILIRUBIN,URINE NEGATIVE (NEGATIVE); COLOR,URINE YELLOW (YELLOW); LEUKOCYTE ESTERASE ,URINE NEGATIVE (NEGATIVE); NITRITE, URINE NEGATIVE (NEGATIVE); PROTEIN,URINE 30 mg/dl (NEGATIVE); UGLUCOSE NEGATIVE (NEGATIVE); UROBILINOGEN,URINE 0.2 EU/dL (0.2)
[2020-08-29 09:14] LABS: CREATININE, URINE 34.5 MG/DL (30.0-125.0)
[2020-08-29 09:33] LABS: BACTERIA,URINE None seen /HPF (None Seen); RBC,URINE 0-2 /HPF (0-2); SQUAMOUS EPITHELIAL CELL,UR Rare /HPF (None Seen); WBC,URINE 0-2 /HPF (0-3)
--- NOTE | 2020-08-29 10:34 | NUR ---
NERVE SPECIALIST NOTE SEEN BY ,UPDATED ABOUT PATIENT CONDITION.MADE AWARE ABOUT BP TRENDING DOWN.OK TO GIVE NS 500ML BOLUS X1 IF SBP LESS THAN 80.
[2020-08-29 12:48] LABS: EOSINOPHIL,URINE None Seen
--- NOTE | 2020-08-29 15:59 | NUR ---
SCALE MANAGER NOTE PATIENT C/O PAIN IN BILATERAL LOWER EXTREMITIES .MILD DISCOLORATION NOTED WITH SWELLING. MADE AWARE .GOT NEW ORDER OR VENOUS DOPPLER.
--- NOTE | 2020-08-29 18:28 | NUR ---
PRINCIPAL ARCHAEOLOGIST CLOSING NOTE PATIENT IS ALERT ORIENTED WITH RESTLESSNESS AND ANXIETY.AWAITING FOR DOPPLER.VITAL SIGNS STABLE.WILL ENDORSE TO PM NURSE FOR CHERYL.
--- NOTE | 2020-08-29 19:12 | NUR ---
RN NOTE RECEIVED PT AWAKE AND ALERT/ORIENTED X 3. IN BED IN HIGH TAPIA'S POSITION. PT ON 5L O2 VIA NC. TACHYPNEIC WITH SIGNS OF ANXIETY, DECREASED STIMULI IN THE ROOM AND TALKED TO PT WITH CALMING VOICE TO EASE ANXIETY AND AGITATION WITH RELIEF. PT DENIES PAIN OR DISCOMFORT. AFIB ON THE BEDSIDE MONITOR WITH HEART RATE 99. VITAL SIGNS STABLE VIA BEDSIDE MONITOR. URINAL AT BEDSIDE REACHABLE. WITH LEFT AC IV AND LEFT WRIST IV BOTH FLUSHED AND PATENT WITHOUT COMPLICATIONS NOTED. PLAN OF CARE DISCUSSED WITH PATIENT, RE-EDUCATED PT ON FLUID RESTRICTION, CALL LIGHT WITHIN REACH, SAFETY MEASURES IN PLACE PER PROTOCOL, BED ALARM ON, BED LOCKED AND IN LOW POSITION, SIDE RAILS UP X 3.
[2020-08-29] MEDS: CEFTRIAXONE 1 G in IV D5W 50 ML IV SCH (20:58)
[2020-08-29] MEDS: TEMAZEPAM 7.5 MG CAPSULE PO PRN (21:23)
[2020-08-29] MEDS ORDERED: LORAZEPAM INJ 2 MG/ML VIAL IV ONE (23:30)
[2020-08-30] VITALS (17 sets, daily range): BP systolic 80–139; BP diastolic 36–81
--- NOTE | 2020-08-30 04:00 | NUR ---
RN NOTE COMPLETE BED BATH GIVEN, PT TOLERATED WELL, WILL CONTINUE TO MONITOR
[2020-08-30 04:28] LABS: BASOPHILS % (AUTO) 0.1 % (0.0-2.0); HEMATOCRIT 41 % (39-51); HEMOGLOBIN 13.1 g/dL (13.5-17.5); LYMPHOCYTES # (AUTO) 0.5 /CMM (0.8-4.8); MEAN CORPUSCULAR HGB CONC 32 g/dl (31.0-36.0); MEAN CORPUSCULAR VOLUME 106 fL (80-96); MONOCYTES # (AUTO) 0.7 /CMM (0.1-1.30); MONOCYTES % (AUTO) 5.2 % (2.0-12.0); NEUTROPHILS # (AUTO) 12.2 /CMM (1.8-8.9); NEUTROPHILS % (AUTO) 90.7 % (43.0-81.0); RED BLOOD CELL COUNT(AUTO) 3.82 MIL/uL (4.5-6.0); WHITE BLOOD COUNT (AUTO) 13.4 K/uL (4.3-11.0)
[2020-08-30 04:51] LABS: CALCIUM, SERUM 8.8 mg/dL (8.5-10.1); CREATININE 1.6 mg/dL (0.6-1.3); POTASSIUM 3.9 mmol/L (3.5-5.1)
[2020-08-30 05:40] LABS: PLATELET COUNT (AUTO) 122 /CMM (150-450)
[2020-08-30 06:04] LABS: LYMPHOCYTES % (MANUAL) 5 % (16-48); MONOCYTES % (MANUAL) 5 % (0-11.0); NEUTROPHILS % (MANUAL) 90 (42-76)
--- NOTE | 2020-08-30 06:54 | NUR ---
RN NOTE PT AWAKE AND ALERT IN BED IN HIGH TAPIA'S POSITION. WITH PERIODS OF AGITATION AND ANXIETY. ON 5L OF O2 VIA NC. IN NO APPARENT DISTRESS. VITAL SIGNS STABLE VIA BEDSIDE MONITOR. PT DENIES PAIN AND DISCOMFORT. SAFETY MEASURES IN PLACE.
[2020-08-30] MEDS: DEXAMETHASONE SOD PHOSPHATE 10 MG/ML VIAL IV SCH (08:20)
[2020-08-30] MEDS: POTASSIUM CHLORIDE 20 MEQ TAB.PRT.SR PO SCH (08:20)
[2020-08-30] MEDS: ATORVASTATIN 40 MG TABLET PO SCH (08:20)
[2020-08-30] MEDS: PANTOPRAZOLE 40 MG TABLET.DR PO SCH (08:20)
[2020-08-30] MEDS: RIVAROXABAN 10 MG TABLET PO SCH (08:21)
[2020-08-30] MEDS: METOPROLOL SUCCINATE 50 MG TAB.SR.24H PO SCH (08:21)
[2020-08-30] MEDS: DOXYCYCLINE HYCLATE (100 MG) 100 MG TABLET PO SCH ×2 (08:21→20:50)
--- NOTE | 2020-08-30 12:30 | NUR ---
RN NOTES RECEIVED PT FROM ICU, REPORT GIVEN BY ARRON JOAQUIN. SAFETY MEASURES IN PLACE. WILL CONTINUE TO MONITOR.
--- NOTE | 2020-08-30 12:30 | NUR ---
RN NOTE PATIENT TRANSFERRED TO LIZ.
--- NOTE | 2020-08-30 18:42 | NUR ---
RN CLOSING NOTES NO SIGNIFICANT CHANGES THROUGHOUT THE SHIFT. NEEDS ATTENDED. DENIES ANY PAIN. STABLE CONDITION. SAFETY MEASURES IN PLACE. WILL ENDORSE TO NIGHT NURSE FOR CHERYL.
--- NOTE | 2020-08-30 19:30 | NUR ---
RN TD NOTE, PT AWAKE SITTING ON THE EDGE OF THE BED, A/O TO SELF WITH EPISODES OF CONFUSION, ENCOURAGED TO LAY DOWN IN HIGH TAPIA'S POSITION, SINCE SHES STATED CAN NOT LAY FLAT, AND HE REFUSED, ON 5L OF O2 VIA NC, PATIENT REMOVING O2, ENCOURAGED TO KEEP O2 IN PLACE, EDUCATION PROVIDED REGARDING IMPORTANCE OF USING O2, WITH OPTIMAL O2 SAT LEVEL ON O2, NO APPARENT DISTRESS, ALL SAFETY MEASURES IN PLACE, BED LOCKED AND IN LOWEST POSITION, S/R OF BED UP X2, WILL CONTINUE TO MONITOR CLOSELY.
[2020-08-30] MEDS: CEFTRIAXONE 1 G in IV D5W 50 ML IV SCH (20:52)
[2020-08-31] VITALS: BP 93/71
[2020-08-31] MEDS: TEMAZEPAM 7.5 MG CAPSULE PO PRN ×2 (00:11→21:27)
--- NOTE | 2020-08-31 01:00 | NUR ---
RN NOTES, PATIENT REFUSED SKIN PICTURES, EXPLAINED RISK AND BENEFITS, STILL REFUSED, PATIENT NOT COMPLIANT WITH CARE, DOES NOT WANT TO GET IN BED, BEEN SITTING AT THE EDGE OF THE BED, EXPLAINED AND EDUCATE REGARDING SAFETY AND RISK FOR FALLS, PATIENT NOT COMPLIANT, AT TIMES WILLING TO PUT THE FEET ON THE BED, BUT KEEP THEM ONLY FOR SHORT TIME, AND AGAIN CONTINUE JUST SITTING ON THE EDGE OF THE BED , REMOVING O2 AND TELE MONITOR TOO, EDUCATION PROVIDED, KEPT PATIENT SAFE AT ALL TIMES. WILL CONTINUE TO MONITOR CLOSELY.
[2020-08-31 04:00] VITALS: BP 90/60
--- NOTE | 2020-08-31 05:00 | NUR ---
RN NOTES, AGAIN ENCOURAGED PATIENT TO ALLOW TO TAKE PICTURES OF SKIN ISSUES, STILL REFUSED, CN AWARE, CONTINUE SITTING ON EDGE OF BED, STATED UNABLE TO LIE DOWN AND PLACED LEGS ON BED, ENCOURAGED PATIENT TO PLACE HIMSELF IN HIGH FOWLERS POSITION, AND KEEP THE HOB ELEVATED IF UNABLE TO LIE DOWN FLAT, STILL REFUSED, WILL CONT TO MONITOR.
[2020-08-31 06:10] LABS: CALCIUM, SERUM 8.4 mg/dL (8.5-10.1); CREATININE 1.5 mg/dL (0.6-1.3)
[2020-08-31 06:36] LABS: BASOPHILS % (AUTO) 0.3 % (0.0-2.0); HEMATOCRIT 40 % (39-51); HEMOGLOBIN 13.2 g/dL (13.5-17.5); LYMPHOCYTES # (AUTO) 0.4 /CMM (0.8-4.8); MEAN CORPUSCULAR HGB CONC 33 g/dl (31.0-36.0); MEAN CORPUSCULAR VOLUME 105 fL (80-96); MONOCYTES # (AUTO) 0.9 /CMM (0.1-1.30); MONOCYTES % (AUTO) 7.5 % (2.0-12.0); NEUTROPHILS # (AUTO) 11.2 /CMM (1.8-8.9); NEUTROPHILS % (AUTO) 89.2 % (43.0-81.0); PLATELET COUNT (AUTO) 133 /CMM (150-450); RED BLOOD CELL COUNT(AUTO) 3.85 MIL/uL (4.5-6.0); WHITE BLOOD COUNT (AUTO) 12.6 K/uL (4.3-11.0)
--- NOTE | 2020-08-31 06:52 | NUR ---
RN TD CLOSING NOTE, PAT AWAKE SLEEPING AT THIS TIME, PLACED FEET UP ON THE BED, FINALLY SLEEPING, ON 5LPM VIA NC, WITH O2 97% AT THIS TIME, NO SOB/ACUTE DISTRESS NOTED, NO SIGNIFICANT CHANGE IN CONDITION, BUT PATIENT NOT COMPLIANT WITH CARE, ALL SAFETY MEASURES IN PLACE, BED LOCKED AND IN LOWEST POSITION, S/R OF BED UP X1, WILL ENDORSE CONTINUITY OF CARE TO ONCOMING NURSE.
--- NOTE | 2020-08-31 07:20 | NUR ---
RN OPENING NOTE PATIENT RECEIVED IN BED RESTING COMFORTABLY. PATIENT IS ON O2 THERAPY VIA NC AT 5 LPM AND TOLERATING WELL. NO SOB OR ACUTE DISTRESS NOTED AT THIS TIME. IT WAS REPORTED THAT PATIENT IS NOT COMPLIANT WITH CARE AND HYPOTENSIVE DURING DEVELOPMENT ENG. ISOLATION PRECAUTIONS IMPLEMENTED. SAFETY PRECAUTIONS IMPLEMENTED, BED LOCKED AND IN LOWEST POSITION, SIDE RAILS UP X2, CALL LIGHT WITHIN REACH. WILL CONTINUE TO MONITOR AND PROVIDE CARE THROUGHOUT SHIFT.
[2020-08-31 08:00] VITALS: BP 107/69
[2020-08-31] MEDS: METOPROLOL SUCCINATE 50 MG TAB.SR.24H PO SCH (09:00)
[2020-08-31] MEDS: DEXAMETHASONE SOD PHOSPHATE 10 MG/ML VIAL IV SCH (09:43)
[2020-08-31] MEDS: PANTOPRAZOLE 40 MG TABLET.DR PO SCH (09:43)
[2020-08-31] MEDS: POTASSIUM CHLORIDE 20 MEQ TAB.PRT.SR PO SCH (09:44)
[2020-08-31] MEDS: DOXYCYCLINE HYCLATE (100 MG) 100 MG TABLET PO SCH ×2 (09:46→21:00)
[2020-08-31] MEDS: RIVAROXABAN 10 MG TABLET PO SCH (09:46)
[2020-08-31 10:07] LABS: *SPE ALBUMIN 2.7 g/dL (2.9-4.4); *SPE ALPHA-1-GLOBULIN 0.3 g/dL (0.0-0.4); *SPE ALPHA-2-GLOBULIN 0.5 g/dL (0.4-1.0); *SPE BETA GLOBULIN 0.8 g/dL (0.7-1.3); *SPE GLOBULIN, TOTAL 2.6 g/dL (2.2-3.9); *SPE M-SPIKE Not Observed g/dL (Not Observed); *SPEGAMMA GLOBULIN 0.9 g/dL (0.4-1.8)
[2020-08-31] MEDS: FUROSEMIDE 40 MG TABLET PO SCH (11:08)
[2020-08-31 12:00] VITALS: BP 93/66
[2020-08-31 16:00] VITALS: BP 100/75
--- NOTE | 2020-08-31 19:03 | NUR ---
RN CLOSING NOTE PATIENT IN BED RESTING COMFORTABLY. PATIENT IS ON O2 THERAPY VIA NC AT 5 LPM AND TOLERATING WELL. NO SOB OR ACUTE DISTRESS NOTED AT THIS TIME. ISOLATION PRECAUTIONS IMPLEMENTED. SAFETY PRECAUTIONS IMPLEMENTED, BED LOCKED AND IN LOWEST POSITION, SIDE RAILS UP X2, CALL LIGHT WITHIN REACH. WILL ENDORSE CARE TO UPCOMING SHIFT
--- NOTE | 2020-08-31 19:40 | NUR ---
RN TD OPENING NOTE, PATIENT IN BED AWAKE, A/O X3 ABLE TO VERBALIZED NEEDS AND CONCERNS, ON 5L OF O2 VIA NC, WITH OPTIMAL O2 SAT LEVEL ON O2, NO SOB/NO APPARENT DISTRESS, LFA IV ACCESS PATENT AND INTACT, ALL SAFETY MEASURES IN PLACE, BED LOCKED AND IN LOWEST POSITION, S/R OF BED UP X2, WILL CONTINUE TO MONITOR CLOSELY.
[2020-08-31 20:00] VITALS: BP 111/69
[2020-08-31] MEDS: CEFTRIAXONE 1 G in IV D5W 50 ML IV SCH (21:00)
[2020-09-01] VITALS: BP 100/73
[2020-09-01 04:00] VITALS: BP 94/77
[2020-09-01 05:56] LABS: BASOPHILS % (AUTO) 0.1 % (0.0-2.0); HEMATOCRIT 39 % (39-51); HEMOGLOBIN 12.8 g/dL (13.5-17.5); LYMPHOCYTES # (AUTO) 0.3 /CMM (0.8-4.8); LYMPHOCYTES % (AUTO) 2.3 % (20.0-44.0); MEAN CORPUSCULAR HGB CONC 33 g/dl (31.0-36.0); MEAN CORPUSCULAR VOLUME 104 fL (80-96); MONOCYTES # (AUTO) 0.8 /CMM (0.1-1.30); MONOCYTES % (AUTO) 6.7 % (2.0-12.0); NEUTROPHILS # (AUTO) 11.3 /CMM (1.8-8.9); NEUTROPHILS % (AUTO) 90.9 % (43.0-81.0); PLATELET COUNT (AUTO) 141 /CMM (150-450); RED BLOOD CELL COUNT(AUTO) 3.72 MIL/uL (4.5-6.0); WHITE BLOOD COUNT (AUTO) 12.4 K/uL (4.3-11.0)
[2020-09-01 06:05] LABS: CALCIUM, SERUM 8.2 mg/dL (8.5-10.1); CREATININE 1.3 mg/dL (0.6-1.3); POTASSIUM 4.1 mmol/L (3.5-5.1)
--- NOTE | 2020-09-01 06:39 | NUR ---
RN TD CLOSING NOTE, PATIENT IN BED ASLEEP AT THIS TIME, ON 5L OF O2 VIA NC, WITH OPTIMAL O2 SAT LEVEL ON O2, NO SOB/NO APPARENT DISTRESS, STABLE ON 5LPM, NO SIGNIFICANT CHANGE IN CONDITION DURING THE NIGHT, LFA IV ACCESS PATENT AND INTACT, ALL SAFETY MEASURES IN PLACE, BED LOCKED AND IN LOWEST POSITION, S/R OF BED UP X2, WILL ENDORSE CONTINUITY OF CARE TO ONCOMING NURSE.
--- NOTE | 2020-09-01 06:54 | NUR ---
RN CLOSING NOTE, PATIENT IN BED ASLEEP AT THIS TIME, ON ROOM WITH OPTIMAL O2 SAT LEVEL ON O2, NO SOB/NO APPARENT DISTRESS, STABLE THROUGHOUT THE NIGHT, NO SIGNIFICANT CHANGE IN CONDITION, ALL SAFETY MEASURES IN PLACE, BED LOCKED AND IN LOWEST POSITION, S/R OF BED UP X2, WILL ENDORSE CONTINUITY OF CARE TO ONCOMING NURSE.
[2020-09-01] MEDS: PANTOPRAZOLE 40 MG TABLET.DR PO SCH (07:53)
--- NOTE | 2020-09-01 07:59 | NUR ---
RN TD OPENING NOTE, PATIENT IN BED AWAKE, A/O X3 ABLE TO VERBALIZED NEEDS AND CONCERNS, ON 5L OF O2 VIA NC, WITH OPTIMAL O2 SAT LEVEL ON O2 100%, NO SOB/NO APPARENT DISTRESS, LFA IV ACCESS PATENT AND INTACT, ALL SAFETY MEASURES IN PLACE, BED LOCKED AND IN LOWEST POSITION, S/R OF BED UP X2, WILL CONTINUE TO MONITOR CLOSELY. ON TELE MONITOR AFIB HR 76 AT THIS TIME, WILL CONT TO MONITOR
[2020-09-01 08:00] VITALS: BP 94/77
[2020-09-01] MEDS: DOXYCYCLINE HYCLATE (100 MG) 100 MG TABLET PO SCH ×2 (08:00→21:43)
[2020-09-01] MEDS: DEXAMETHASONE SOD PHOSPHATE 10 MG/ML VIAL IV SCH (08:00)
[2020-09-01] MEDS: FUROSEMIDE 40 MG TABLET PO SCH (08:00)
[2020-09-01] MEDS: RIVAROXABAN 10 MG TABLET PO SCH (08:01)
[2020-09-01] MEDS: METOPROLOL SUCCINATE 50 MG TAB.SR.24H PO SCH (08:06)
--- NOTE | 2020-09-01 10:22 | NUR ---
BAKERY CLERK NOTE SEEN BY CELENA JOAQUIN BATH SOLUTION MAKER AWARE THAT NOTED SPUTUN WITH SOME BLOOD, NO NEW ORDER AT THIS TIME
--- NOTE | 2020-09-01 12:11 | NUR ---
MS RN NOTE PATENT DESATURATED 86% ON RA AT REST, PLACED ON 5L OFO2 VIA NC, WILL CONT TO MONITOR
--- NOTE | 2020-09-01 14:04 | NUR ---
MS RN NOTE ROUNDS MADE ,ALL NEEDS ATTENDED ABLE TO URINATE WELL USING A URINAL
[2020-09-01 16:00] VITALS: BP 103/84
--- NOTE | 2020-09-01 18:33 | NUR ---
MS RN NOTE PER ONLINE CONTENT COORDINATOR O2 TANK DELIVERED TO USE AT HOME, HAVING DINNER , ABLE TO EAT MARY ON 5L NC WITH SLIGHT SOB NOTED , SATURATION 88% AT THIS TIME ,PATIENT DNR\DNI CODE STATUS, ALL NEEDS ATTENDED,CALL LIGHT WITHIN REACH, WILL CONT TO MONITOR
--- NOTE | 2020-09-01 19:12 | NUR ---
MS RN: CONTINUITY OF CARE Patient in bed, awake, A/O x3. On Oxygen 5L via NC, no c/o sob at rest and with exertion. Covid 19 Rapid/PCR test positive, remains on Contact/Droplet isolation, PPE utilized.
[2020-09-01 20:37] VITALS: BP 113/87
[2020-09-01] MEDS: CEFTRIAXONE 1 G in IV D5W 50 ML IV SCH (21:47)
[2020-09-02 05:43] VITALS: BP 103/77
[2020-09-02 06:24] LABS: BASOPHILS % (AUTO) 0.1 % (0.0-2.0); HEMATOCRIT 37 % (39-51); HEMOGLOBIN 12.2 g/dL (13.5-17.5); LYMPHOCYTES # (AUTO) 0.3 /CMM (0.8-4.8); LYMPHOCYTES % (AUTO) 2.3 % (20.0-44.0); MEAN CORPUSCULAR HGB CONC 33 g/dl (31.0-36.0); MEAN CORPUSCULAR VOLUME 103 fL (80-96); MONOCYTES % (AUTO) 7.8 % (2.0-12.0); NEUTROPHILS % (AUTO) 89.8 % (43.0-81.0); PLATELET COUNT (AUTO) 156 /CMM (150-450); RED BLOOD CELL COUNT(AUTO) 3.57 MIL/uL (4.5-6.0); WHITE BLOOD COUNT (AUTO) 12.2 K/uL (4.3-11.0)
--- NOTE | 2020-09-02 06:26 | NUR ---
MS RN: END OF SHIFT REPORT Remain on Oxygen 5L via NC. On Decadron and IV Rocephin, afebrile. No c/o pain. No acute events overnight. Contact/Droplet isolation, PPE utilized. Fall precaution maintained.
[2020-09-02 07:00] LABS: PHOSPHORUS 2.6 mg/dL (2.5-4.9)
--- NOTE | 2020-09-02 07:30 | NUR ---
RN OPENING NOTE PATIENT IS CURRENTLY IN BED WITH HOB AT SEMI FOWLERS POSITION. CURRENTLY AOX3. ON 5L NC WITH NO SIGNS OF LABORED BREATHING. LEG WOUND IS NOTED. IV ACCESS IS PATENT, INTACT, AND HAS NO SIGNS OF INFILTRATION. BED IS LOCKED IN THE LOWEST POSITION, 3 GUARD RAILS RAISED, AND ALL HOSPITAL SAFETY PRECAUTIONS ARE BEING FOLLOWED. WILL CONTINUE TO MONITOR THROUGHOUT SHIFT.
[2020-09-02] MEDS: PANTOPRAZOLE 40 MG TABLET.DR PO SCH (07:47)
[2020-09-02 08:00] VITALS: BP 97/61
[2020-09-02] MEDS: FUROSEMIDE 40 MG TABLET PO SCH ×2 (09:00→09:14)
[2020-09-02] MEDS: METOPROLOL SUCCINATE 50 MG TAB.SR.24H PO SCH (09:00)
[2020-09-02] MEDS: DEXAMETHASONE SOD PHOSPHATE 10 MG/ML VIAL IV SCH (09:13)
[2020-09-02] MEDS: DOXYCYCLINE HYCLATE (100 MG) 100 MG TABLET PO SCH ×2 (09:13→20:41)
[2020-09-02] MEDS: RIVAROXABAN 10 MG TABLET PO SCH (09:15)
[2020-09-02] MEDS: CARVEDILOL 3.125 MG TABLET PO SCH ×3 (09:30→20:49)
[2020-09-02 12:00] VITALS: BP 97/61
[2020-09-02 16:00] VITALS: BP 133/94
--- NOTE | 2020-09-02 19:38 | NUR ---
rn closing note patient remained stable throughout shift. all due meds given. will endorse to manufacturing shift supervisor rn for kanika.
[2020-09-02 20:00] VITALS: BP 111/66
--- NOTE | 2020-09-02 20:00 | NUR ---
RN NOTES Received pt. awake sitting on his chair, a/ox3, not in distress, denies pain, call light within reach, siderailsupx2, will continue to monitor
--- NOTE | 2020-09-02 21:00 | NUR ---
RN NOTES Patient refused his Coreg 3.125mg po, pt, is afraid his blood pressure will dropped.. educate the importance of this medication , still pt is refusing
[2020-09-02] MEDS: TEMAZEPAM 7.5 MG CAPSULE PO PRN (22:10)
--- NOTE | 2020-09-02 22:10 | NUR ---
RN NOTES pt. asked for sleepin pill- Restoril 7.5mg po given as ordered, V/S stable
[2020-09-03 04:00] VITALS: BP 114/85
[2020-09-03 06:01] LABS: BASOPHILS % (AUTO) 0.1 % (0.0-2.0); HEMATOCRIT 38 % (39-51); HEMOGLOBIN 12.5 g/dL (13.5-17.5); LYMPHOCYTES # (AUTO) 0.3 /CMM (0.8-4.8); LYMPHOCYTES % (AUTO) 2.8 % (20.0-44.0); MEAN CORPUSCULAR HGB CONC 33 g/dl (31.0-36.0); MEAN CORPUSCULAR VOLUME 104 fL (80-96); MONOCYTES # (AUTO) 0.9 /CMM (0.1-1.30); MONOCYTES % (AUTO) 7.9 % (2.0-12.0); NEUTROPHILS # (AUTO) 10.6 /CMM (1.8-8.9); NEUTROPHILS % (AUTO) 89.2 % (43.0-81.0); PLATELET COUNT (AUTO) 155 /CMM (150-450); RED BLOOD CELL COUNT(AUTO) 3.68 MIL/uL (4.5-6.0); WHITE BLOOD COUNT (AUTO) 11.9 K/uL (4.3-11.0)
--- NOTE | 2020-09-03 06:19 | NUR ---
RN NOTES Sleeping but arousable, not in distress, denies pain,morning care rendered call light within reach,bobupx2, pt. needs attended
[2020-09-03 06:41] LABS: CALCIUM, SERUM 8.1 mg/dL (8.5-10.1); CREATININE 0.9 mg/dL (0.6-1.3)
--- NOTE | 2020-09-03 07:30 | NUR ---
MS/RN OPENING NOTES RECEIVED PATIENT ON BED AWAKE ALERT AND ORIENTED X3. PATIENT IS ON 5L OXYGEN VIA NASAL CANNULA SATURATION 98%. NO COMPLAINED OF PAIN AT THIS TIME. WILL CONTINUE TO MONITOR.
[2020-09-03] MEDS: PANTOPRAZOLE 40 MG TABLET.DR PO SCH (07:45)
[2020-09-03 08:00] VITALS: BP 108/83
[2020-09-03] MEDS: DEXAMETHASONE SOD PHOSPHATE 10 MG/ML VIAL IV SCH (08:22)
[2020-09-03] MEDS: DOXYCYCLINE HYCLATE (100 MG) 100 MG TABLET PO SCH (08:22)
[2020-09-03] MEDS: RIVAROXABAN 10 MG TABLET PO SCH (08:24)
[2020-09-03] MEDS: CARVEDILOL 3.125 MG TABLET PO SCH (08:24)
--- NOTE | 2020-09-03 08:34 | NUR ---
MS/RN NOTES BP 108/80 P 88 COREG 3.125MG 1 TAB PO NOT GIVEN. WILL CONTINUE TO MONITOR.
[2020-09-03] MEDS ORDERED: DOXY100T2 PO (10:21)
[2020-09-03] MEDS ORDERED: METO-358 PO (10:21)
[2020-09-03] MEDS ORDERED: TEMA7.5C PO (10:21)
[2020-09-03] MEDS ORDERED: FURO40TA5 PO (10:21)
[2020-09-03] MEDS ORDERED: CARV3.122 PO (10:21)
[2020-09-03 12:00] VITALS: BP 108/83
--- NOTE | 2020-09-03 14:31 | NUR ---
MS/RN NOTES PATIENT IS ALERT AND ORIENTED X3. PATIENT IS ON 5L OXYGEN SATURATION 100%. NO COMPLAINED OF PAIN NOTED AT THIS TIME. SEEN AND EXAMINED BY MD WITH ORDERS MADE AND CARRIED OUT. ALL DUE MEDICATIONS WAS GIVEN. DISCHARGED INSTRUCTIONS WAS GIVEN AND PATIENT VERBALIZED UNDERSTANDING. REPORT WAS GIVEN TO ALBER JOAQUIN AT [facility]. PATIENT LEFT IN MEDICALLY STABLE CONDITION NURSING UNIT CLERK BY 2 EMT.
== END 2020-09-03 14:30 | DRG 137 ==
LOC: ER 17:45 → ICU 20:29 → TELE-TD 08-30 12:05 → TELE1 09-01 08:42 → MEDSG1 09-01 10:56
PROVIDERS: ADMIT Nurse Practitioner Acute Care; ATTEND Nurse Practitioner Acute Care
DX: U07.1 COVID-19 (principal); I21.A1 Myocardial infarction type 2; I11.0 Hypertensive heart disease with heart failure; E44.0 Moderate protein-calorie malnutrition; J12.82 Pneumonia due to coronavirus disease 2019; N17.0 Acute kidney failure with tubular necrosis; Z66 Do not resuscitate; Z79.01 Long term (current) use of anticoagulants; J96.01 Acute respiratory failure with hypoxia; Z79.51 Long term (current) use of inhaled steroids; Z79.899 Other long term (current) drug therapy; I50.43 Acute on chronic combined systolic (congestive) and diastolic (congestive) heart failure; K21.9 Gastro-esophageal reflux disease without esophagitis; D68.59 Other primary thrombophilia; E87.1 Hypo-osmolality and hyponatremia; E87.6 Hypokalemia; E78.5 Hyperlipidemia, unspecified; I13.0 Hypertensive heart and chronic kidney disease with heart failure and stage 1 through stage 4 chronic kidney disease, or unspecified chronic kidney disease; N18.9 Chronic kidney disease, unspecified; I73.9 Peripheral vascular disease, unspecified; I87.2 Venous insufficiency (chronic) (peripheral); J45.909 Unspecified asthma, uncomplicated; K76.6 Portal hypertension; D61.818 Other pancytopenia; R74.01 Elevation of levels of liver transaminase levels; F15.90 Other stimulant use, unspecified, uncomplicated; M10.9 Gout, unspecified; I42.9 Cardiomyopathy, unspecified; I31.3 Pericardial effusion (noninflammatory); I34.0 Nonrheumatic mitral (valve) insufficiency; I48.91 Unspecified atrial fibrillation; Z91.19 Patient's noncompliance with other medical treatment and regimen; Z87.891 Personal history of nicotine dependence; M89.9 Disorder of bone, unspecified; I25.2 Old myocardial infarction; J15.9 Unspecified bacterial pneumonia; I27.20 Pulmonary hypertension, unspecified; K74.60 Unspecified cirrhosis of liver; L03.115 Cellulitis of right lower limb; D69.6 Thrombocytopenia, unspecified; N13.9 Obstructive and reflux uropathy, unspecified; L97.819 Non-pressure chronic ulcer of other part of right lower leg with unspecified severity; M62.562 Muscle wasting and atrophy, not elsewhere classified, left lower leg; M62.561 Muscle wasting and atrophy, not elsewhere classified, right lower leg; S81.812A Laceration without foreign body, left lower leg, initial encounter; S81.811A Laceration without foreign body, right lower leg, initial encounter; X58.XXXA Exposure to other specified factors, initial encounter; Y92.9 Unspecified place or not applicable
CPT/HCPCS: 36415; 71045-TC; 80048-TC; 80053-TC; 80061-TC; 80076-TC; 81001; 82550-TC; 82553; 82570-TC; 82728-TC; 83615-TC; 83735-TC; 83880; 83970; 84100-TC; 84155; 84155-TC; 84165; 84300-TC; 84484-TC; 85025-TC; 85378-TC; 85730-TC; 86140-TC; 87081-TC; 87086-TC; 94799-TC; 97112-TC; 97116-TC; 97530-TC; 99082-TC; A6253; C9803; G0378; J0696; J1100; J1940; J2060; J3480; J3490; J7050; J7060; U0003